=== PATIENT | male | born 1975 | race Two or more races ===

== ENCOUNTER 2020-03-12 08:28 | Inpatient (IN) | payer SELFPAY ==
[2020-03-12] VITALS (17 sets, daily range): BP systolic 86–137; BP diastolic 74–104; PULSE 83–164; RESP 22–39; TEMP 35.4–37.2; O2SAT 74–98; BMI 20.9
--- NOTE | ~2020-03-12 | XR_ITS ---
EXAMINATION: XR chest 1V portable DATE: 03/13/2020 06:23 INDICATION: Right lower thorax post chest tube placement TECHNIQUE: frontal view of the chest was obtained. COMPARISON: Chest radiograph dated 03/12/2020 FINDINGS: No interval change in a right apically directed chest tube. Slight decrease in size of a small right pneumothorax with separation of the pleural margins decreasing from 2.0 to 1.4 cm. Bilateral diffuse interstitial and patchy airspace opacities. No pleural effusion or left-sided pneumothorax. The cardi omediastinal silhouette is normal. IMPRESSION: 1. Decreased now small right pneumothorax post chest tube insertion. 2. Persistent bilateral mild interstitial and airspace opacities which could represent mild pulmonary edema, atelectasis or pneumonia. Reviewed, dictated and finalized at location A. IMPRESSION: 1. Decreased now small right pneumothorax post chest tube insertion. 2. Persistent bilateral mild interstitial and airspace opacities which could re present mild pulmonary edema, atelectasis or pneumonia.
--- NOTE | ~2020-03-12 | XR_ITS ---
EXAMINATION: XR chest 1V portable DATE: 03/17/2020 08:17 INDICATION: Right pneumothorax post chest tube placement TECHNIQUE: frontal view of the chest was obtained. COMPARISON: Chest radiograph dated 03/16/2020 FINDINGS: No change in an apically directed right chest tube. No significant change in a tiny right apical pneu mothorax. Blunting at the left costophrenic angle consistent with small left pleural effusion. Additi onal opacities in the left lower lung zone which could represent associated atelectasis or pneumonia. Pulmonary vascular congestion with increased perihilar interstitial pattern consistent with mild pul monary edema. No left-sided pneumothorax or right-sided pleural effusion. The cardiomediastinal silho uette is normal. Persistent subcutaneous gas along the lateral right chest wall centered at the site of chest tube insertion. IMPRESSION: 1. Unchanged right chest tube and tiny right apical pneumothorax. 2. Small left pleural effusion with associated atelectasis and/or pneumonia in the left lower lung zo ne. 3. Pulmonary vascular congestion and mild perihilar edema. Reviewed, dictated and finalized at location A. IMPRESSION: 1. Unchanged right chest tube and tiny right apical pneumothorax. 2. Small left pleural effusion with associated atelectasis and/or pneumonia in the left lower lung zone. 3. Pulmonary vascular congestion and mild perihilar edema.
--- NOTE | ~2020-03-12 | XR_ITS ---
EXAMINATION: XR chest 1V portable DATE: 03/14/2020 06:00 INDICATION: Pneumothorax TECHNIQUE: frontal view of the chest was obtained. COMPARISON: Chest radiograph dated 03/13/2020 FINDINGS: Unchanged right chest tube with tip at the apex. Continued decrease in size in a small right pneumoth orax with approximately 6 mm maximal separation between the pleural margins. No left-sided pneumothor ax. Interval increase in left-sided predominant and parahilar predominant interstitial and airspace o pacities. Possible trace bilateral pleural effusions. The cardiomediastinal silhouette is normal. IMPRESSION: 1. Increasing perihilar predominant opacities, left greater than right, which could represent asymmet theo pulmonary edema and/or pneumonia. 2. Unchanged right chest tube with continued decrease in a small right pneumothorax. Reviewed, dictated and finalized at location A. IMPRESSION: 1. Increasing perihilar predominant opacities, left greater than right, which c ould represent asymmetric pulmonary edema and/or pneumonia. 2. Unchanged right chest tube with continued decrease in a small right pneumoth orax.
--- NOTE | ~2020-03-12 | XR_ITS ---
EXAMINATION: XR chest 1V portable EXAM DATE: 03/12/2020 09:14 INDICATION: Pneumothorax. Hypoxia, dyspnea. TECHNIQUE: Portable AP frontal chest x-ray was obtained. Comparison is made to prior examination from 10/08/2005. FINDINGS: There is large right-sided pneumothorax, with some contralateral midline shift and right he midiaphragm flattening indicating this is under some tension. I discussed this finding with Lucia Kapoor MD at 03/12/2020 09:17 CDT. Collapsed right lung. No left-sided consolidation. Cardiomediastinal silhouette is normal. There are no osseous abnormalities identified. IMPRESSION: Large right-sided tension pneumothorax. Reviewed, dictated and finalized at location A.
--- NOTE | ~2020-03-12 | XR_ITS ---
EXAMINATION: XR chest-chest tube insert/pos DATE: 03/16/2020 14:03 INDICATION: Chest tube placement TECHNIQUE: frontal view of the chest was obtained. COMPARISON: Chest radiograph dated 03/16/2020 at 5:11 AM FINDINGS: Interval repositioning of a right chest tube with distal tip at the medial side of the right upper marcie ng zone. Decrease in size of a now very small right pneumothorax with 7 mm maximal separation of the pleural surfaces at the apex. Increased subcutaneous gas along the lateral right chest wall at the si te of chest and insertion. Again seen are mild airspace opacities in the left lower lung zone. No ple ural effusion or left-sided pneumothorax. The cardiomediastinal silhouette is normal conifer slight l eftward rotation of the patient. IMPRESSION: 1. Decrease in size of a now very small right apical pneumothorax post right chest tube repositioning . 2. Opacities in the left lower lung zone which could represent atelectasis and/or pneumonia. Reviewed, dictated and finalized at location A. IMPRESSION: 1. Decrease in size of a now very small right apical pneumothorax post right ch est tube repositioning. 2. Opacities in the left lower lung zone which could represent atelectasis and/ or pneumonia.
--- NOTE | ~2020-03-12 | XR_ITS ---
EXAMINATION: XR chest 2V DATE: 03/19/2020 09:04 INDICATION: Right pneumothorax TECHNIQUE: frontal view of the chest was obtained. COMPARISON: Chest radiograph dated 03/18/2020 FINDINGS: Unchanged position of an apically directed right chest tube. Interval increase in size of a still sma ll right pneumothorax with separation of the pleural margins at the right upper lung measuring up to 1.6 cm and with the pneumothorax now extending caudally to the lung base. Persistent opacities in the left lower lung zone including small left pleural effusion. No left-sided pneumothorax or definitive right pleural effusion. The cardiomediastinal silhouette is normal with no evident midline shift. Pe rsistent soft tissue gas at the lateral right chest wall centered at the site of chest tube insertion . IMPRESSION: 1. Increase in size of a small right pneumothorax with unchanged right chest tube. 2. Small left pleural effusion with atelectasis and/or pneumonia in the left lower lung zone. Reviewed, dictated and finalized at location A. IMPRESSION: 1. Increase in size of a small right pneumothorax with unchanged right chest tu be. 2. Small left pleural effusion with atelectasis and/or pneumonia in the left lo wer lung zone.
--- NOTE | ~2020-03-12 | US_ITS ---
EXAMINATION: US abdomen complete EXAM DATE: 03/14/2020 15:47 INDICATION: Spleen size. TECHNIQUE: Multiple grayscale and Doppler images of the complete abdomen were obtained (by a technolo gist who performed the scan) and subsequently reviewed. There is no prior study for comparison. FINDINGS: The abdominal aorta is normal in caliber. Visualized portion IVC is patent. The pancreatic head a nd body are normal in appearance. The pancreatic tail is not visualized. The liver has normal echogenicity and contour. There are no focal liver lesions identified. There is no evidence of intrahepatic biliary duct dilation. Portal venous flow was seen in the hepatopedal , normal direction and has normal Doppler waveform. Common bile duct measures 3 mm, which is normal. The gallbladder wall is normal in thickness, with ex pected amount of distention. No sonographic evidence of pericholecystic fluid. There is 1.4 cm gall stone. Technologist performing exam reports patient did not demonstrate sonographic Yen's sign. Please note that this sign is less reliable in patients who have received pain medication. Right kidney: There is normal contour and echogenicity. It measures 10.7 x 7.0 x 5.1 centimeters. There are no focal renal lesions identified. There is no hydronephrosis. Left kidney: There is normal contour and echogenicity. It measures 11.0 x 5.7 x 7.0 centimeters. T here are no focal renal lesions identified. There is no hydronephrosis. The spleen measures 9.4 centimeters and is morphologically normal. IMPRESSION: 1. Normal spleen size. 2. Cholelithiasis. Reviewed, dictated and finalized at location B.
--- NOTE | ~2020-03-12 | XR_ITS ---
EXAMINATION: XR chest 1V portable DATE: 03/16/2020 05:48 INDICATION: Pneumothorax TECHNIQUE: frontal view of the chest was obtained. COMPARISON: Chest radiograph dated 03/15/2020 FINDINGS: No interval change in apically directed right chest tube or of a small right pneumothorax with approx imately 1.7 cm separation of the pleural margins. Mild increased interstitial pattern in the bilatera l lower lung zones. Increasing more patchy airspace opacities in the left lower lung zone. No pleural effusion or left-sided pneumothorax. The cardiomediastinal silhouette is normal. Visualized bones an d soft tissues are unremarkable. IMPRESSION: 1. Unchanged small right pneumothorax with right chest tube. 2. Mild pulmonary edema in the lower lung zones with more focal opacities in the left lower lung zone which could represent superimposed atelectasis or pneumonia. Reviewed, dictated and finalized at location A. IMPRESSION: 1. Unchanged small right pneumothorax with right chest tube. 2. Mild pulmonary edema in the lower lung zones with more focal opacities in th e left lower lung zone which could represent superimposed atelectasis or pneumo magalie.
--- NOTE | ~2020-03-12 | XR_ITS ---
EXAMINATION: XR chest 1V portable DATE: 03/18/2020 05:57 INDICATION: Right pneumothorax post chest tube placement TECHNIQUE: frontal view of the chest was obtained. COMPARISON: Chest radiograph dated 03/17/2020 FINDINGS: Apically directed right chest tube. No significant interval change in a small right apical pneumothor ax. Opacities in the left lower lung zone consistent with small left pleural effusion and associated atelectasis and/or pneumonia. No left-sided pneumothorax or right-sided pleural effusion. The cardiom ediastinal silhouette is normal. Visualized bones and soft tissues are unremarkable. Persistent subcu taneous gas at the lateral right chest wall centered at the site of chest tube insertion. IMPRESSION: 1. Unchanged small right pneumothorax with right chest tube. 2. Small left pleural effusion with increasing atelectasis and/or pneumonia in the left lower lung zo ne. Reviewed, dictated and finalized at location A. IMPRESSION: 1. Unchanged small right pneumothorax with right chest tube. 2. Small left pleural effusion with increasing atelectasis and/or pneumonia in the left lower lung zone.
--- NOTE | ~2020-03-12 | XR_ITS ---
EXAMINATION: XR chest 1V portable DATE: 03/15/2020 06:33 INDICATION: Pneumothorax TECHNIQUE: frontal view of the chest was obtained. COMPARISON: Chest radiograph dated 03/14/2020 FINDINGS: Unchanged right chest tube with tip at the apex. Increase in size of a still small right pneumothorax with 1.7 cm maximal separation between the pleural margins at the apex. No left-sided pneumothorax. Pulmonary vascular congestion with mild interval improvement in the indistinct perihilar predominant bilateral diffuse increased interstitial pattern consistent with improving pulmonary edema. No pleura l effusion. Cardiomediastinal silhouette is normal. IMPRESSION: 1. Slight increase in size of a still small right pneumothorax with unchanged right chest tube. 2. Pulmonary vascular congestion with slight improvement in mild perihilar edema. Reviewed, dictated and finalized at location A. IMPRESSION: 1. Slight increase in size of a still small right pneumothorax with unchanged r ight chest tube. 2. Pulmonary vascular congestion with slight improvement in mild perihilar twyla debby
--- NOTE | ~2020-03-12 | XR_ITS ---
EXAMINATION: XR chest-chest tube insert/pos EXAM DATE: 03/12/2020 09:54 INDICATION: Chest tube insertion. TECHNIQUE: Portable AP frontal chest x-ray was obtained. Comparison is made to prior examination from earlier same date. FINDINGS: Interval insertion of right-sided chest tube with significant reduction in the previously s een large right-sided pneumothorax. It is now small to moderate in size. The mediastinum has returned to expected position. There are no osseous abnormalities identified. Some reexpansion atelectasis of the right lung. No confluent consolidation or pleural effusion. IMPRESSION: Small to moderate right pneumothorax, improved following chest tube insertion. Reviewed, dictated and finalized at location A. IMPRESSION: Small to moderate right pneumothorax, improved following chest tub e insertion.
--- NOTE | 2020-03-12 08:31 | ECG_ITS ---
Measurements Intervals [place] Rate: 160 P: [place]: 0 QRS: 103 QRSD: 90 T: 92 QT: 259 QTc: 422 Interpretive Statements SINUS TACHYCARDIA LIMB LEAD REVERSAL ANTEROSEPTAL INFARCT, AGE INDETERMINATE ABNORMAL ECG Electronically Signed On 03-12-2020 9:25:21 CDT by Myles Cody D.O.
--- NOTE | 2020-03-12 08:33 | ED.GENADULT ---
HPI - General Adult General Chief complaint: Shortness of Breath/Dyspnea Stated complaint: SOB Time Seen by Provider: 03/12/20 08:33 Source: patient Mode of arrival: ambulatory Limitations: no limitations History of Present Illness HPI narrative: Patient is a 44-year-old male with a history of plaque psoriasis taking Otezla who presents to the emergency department for shortness of breath. Patient reports 5-day history of worsening shortness of breath, finally came to the emergency department because he was having such difficulty breathing. Patient reports he is a daily smoker, but denies any history of COPD. He denies any drug use or alcohol use. Denies any history of HIV or other medical conditions. Patient states he is chronically thin, no recent weight loss. He denies fever, chills, rhinorrhea. He reports mild right-sided chest pain which has seems to come and go over the past 5 days, currently he rates it as more moderate in nature. He denies back pain, shoulder pain. No diaphoresis. He denies leg swelling or leg pain. No recent car or air travel. Patient states he is not had any recent sick contacts, mostly isolating at home. Related Data Home Medications Medication Instructions Recorded Confirmed No Home Medications 08/11/19 08/11/19 Allergies Allergy/AdvReac Type Severity Reaction Status Date / Time No Known Allergies Allergy Verified 03/12/20 08:44 Review of Systems Review of Systems: Narrative: CONSTITUTIONAL: Denies fever, chills, or sweats. EYES: Denies visual changes, redness, or discharge. ENT: Denies rhinorrhea, congestion, sore throat, or otalgia. CARDIOVASCULAR: Reports right-sided chest pain and palpitations, denies edema RESPIRATORY: Reports dry cough and shortness of breath GASTROINTESTINAL: Denies abdominal pain, nausea, vomiting, or diarrhea. GENITOURINARY: Denies dysuria or hematuria. SKIN: Denies rash or itching. MUSCULOSKELETAL: Denies back pain, joint pain, or myalgia. NEUROLOGIC: Denies headache, numbness, or weakness. [facility] Past Medical History Medical History Plaque psoriasis Social History Social History Smoking packs per day: 0.25 Smoking cigarettes per day: 5.0 Smoking status: Current every day smoker Tobacco type: cigarettes Second hand tobacco smoke exposure: Yes Gender identity (if verbalized by the patient): Male Exam Narrative: Exam Narrative: GENERAL: Awake, alert, conversant, chronically ill-appearing, thin HEAD: Normocephalic, atraumatic. Plaque psoriasis overlying scalp. EYES: PERRLA and EOMI. ENT: Nares clear, no rhinorrhea or epistaxis. Mucous membranes dry. NECK: Supple. CHEST: Tachypneic, severe hypoxemic, 74% on room air, diminished breath sounds on the right, coarse breath sounds on the left, no inspiratory or expiratory wheezing HEART: Tachycardic rate, sinus rhythm ABDOMEN:Non distended, non tender EXTREMITIES: Normal range of motion. No edema. SKIN: Warm, dry, no rash. NEURO:No focal deficits. Alert and oriented x3 Course Vital Signs Vital signs: Vital Signs Temperature 36.6 C 03/12/20 08:32 Pulse Rate 164 H 03/12/20 08:32 Respiratory Rate 26 H 03/12/20 08:32 Blood Pressure 137/101 H 03/12/20 08:32 Pulse Oximetry 74 L 03/12/20 08:32 Temperature 36.6 C 03/12/20 08:32 Pulse Rate 139 H 03/12/20 10:22 Respiratory Rate 27 H 03/12/20 10:22 Blood Pressure 104/89 03/12/20 10:22 Pulse Oximetry 94 03/12/20 10:23 Procedures Chest Tube Chest Tube 1: Chest Tube Date: 03/12/20 Chest Tube Time: 09:20 Chest Tube Location: right, mid axillary line and fourth interspace Tube Type: quik thal Size of Tube (cm): 16 Chest Tube Prep: Yes betadine prep and sterile drapes applied Anesthetic: lidocaine 1% Amount of anesthesia used (mL): 8 Incision Made With: #
[2020-03-12] MEDS: ALBUTEROL SULFATE (*SP) AEROSOL 1 PUFF 2 PUFF INHALATION (09:00)
[2020-03-12] MEDS: SODIUM CHLORIDE 0.9% IV 1,000 ML 999 ML IV CONT ×2 (09:00→11:04)
[2020-03-12 09:08] LABS: Basophils Percent Auto 0.7 % (0.2-1.2); Hematocrit 45.3 % (42.0-52.0); Hemoglobin 15.4 g/dL (14.0-18.0); Immature Granulocyte Absolute 0.05 K/mm3 (0.00-0.031); Immature Granulocyte Percent A 3.4 % (0-0.5); Lymphocytes Absolute Auto 0.37 K/mm3 (0.9-3.2); Lymphocytes Percent Auto 25.5 % (18.3-44.2); Mean Corpuscular Hemoglobin 30.5 pg (26-34); Mean Corpuscular Volume 89.7 fl (80-100); Mean Platelet Volume 10.4 fl (7.4-10.4); Monocytes Absolute Auto 0.4 K/mm3 (0.1-0.6); Monocytes Percent Auto 26.2 % (2.6-8.5); Neutrophils Absolute Auto 0.6 K/mm3 (1.3-6.7); Neutrophils Percent Auto 44.2 % (45.5-73.1); Platelet Count Result 288 k/mm3 (150-375); Red Blood Count 5.05 M/mm3 (4.6-6.20); Red Cell Distribution Width 13.5 % (11.5-14.5)
[2020-03-12 09:09] LABS: White Blood Count 1.5 K/mm3 (4.5-10.0)
[2020-03-12 09:13] LABS: Base Excess ABG -4.5 mEq/l (+/-2.0); Carboxyhemoglobin 0.5 % THb (0-2.0); Fractional Inspired Oxygen 40 %; HCO3 ABG 17.6 mEq/l (22.0-26.0); Methemoglobin ABG 0.3 %THb (0-1.5); Oxygen Content ABG 16.8 %vol (16.0-22.0); Oxygen Saturation ABG 87.9 % (95.0-100.0); Oxyhemoglobin 85.7 % THb (90.0-100.0); PCO2 ABG 25.6 mmHg (35.0-45.0); PO2 FiO2 Ratio Arterial Blood 1.25 %; Reduced Hemoglobin 13.5 %THb (0-5.0); pH ABG 7.456 (7.350-7.450)
[2020-03-12 09:14] LABS: PO2 ABG 49.8 mmHg (80.0-100.0)
[2020-03-12 09:21] LABS: Lactic Acid Reflex 3.9 mmol/L (0.7-2.1)
[2020-03-12 09:21] LABS: INR 1.2; Prothrombin Time 14.5 Seconds (11.1-14.7)
[2020-03-12 09:30] LABS: NT Pro B Type Natriuretic Pept 1510 PG/ML (5-100)
--- NOTE | 2020-03-12 09:32 | PC.NURSE ---
MD at bedside to perform chest tube procedure, time out performed, consent signed
[2020-03-12 09:35] LABS: Alanine Aminotransferase 26 U/L (4-50); Albumin Level 4.3 g/dL (3.5-5.1); Alkaline Phosphatase 135 U/L (38-126); Aspartate Amino Transferase 52 U/L (17-59); Bilirubin,Total 0.7 mg/dL (0.2-1.3); Blood Urea Nitrogen 25 mg/dL (9-20); CRP 17.9 mg/dL (<1.0); Calcium 9.9 mg/dL (8.4-10.2); Carbon Dioxide 23 mmol/L (22-30); Chloride 101 mmol/L (98-107); Estimated CRCL calculation 85 ml/min; Estimated Glomerular Filt Rate > 60; Glucose 173 mg/dL (75-110); Lactate Dehydrogenase 1039 U/L (313-618); Potassium 4.2 mmol/L (3.4-5.0); Sodium 136 mmol/L (137-145)
[2020-03-12 09:50] LABS: Add Urine Microscopic? YES; Appearance Urine Clear (Clear); Bacteria Urine Trace /hpf; Bilirubin Urine Negative (Negative); Blood Urine 1+ (Negative); Color Urine Amber (Yellow); Glucose Urine UA Negative (Negative); Ketones Urine Trace mg/dL (Negative); Leukocyte Esterase Ur Negative LEU/UL (Negative); Mucus Urine Few /lpf; Nitrate Urine Negative (Negative); Protein Urine 3+ mg/dL (Negative); Specific Grav Ur 1.032 (1.001-1.035); Squamous Epithelial Cell Urine Occasional /hpf (Few); Urobilinogen Urine Negative mg/dL (<2.0); WBC Urine 0-3 /hpf
[2020-03-12] MEDS: MORPHINE SULFATE 4 MG/ML INJ IV PUSH ×5 (10:16→23:30)
--- NOTE | 2020-03-12 10:49 | ECG_ITS ---
Measurements Intervals [place] Rate: 142 P: 77 [place]: 134 QRS: 97 QRSD: 82 T: 56 QT: 287 QTc: 441 Interpretive Statements SINUS TACHYCARDIA BORDERLINE RIGHT AXIS DEVIATION CANNOT RULE OUT SEPTAL INFARCT, AGE INDETERMINATE BASELINE ARTIFACT- I, III ABNORMAL ECG Electronically Signed On 03-12-2020 13:26:16 CDT by Myles Cody D.O.
[2020-03-12 11:06] LABS: HIV 1/2 Ab P24 Ag 184
[2020-03-12 11:22] LABS: Ferritin > 2000.00 ng/mL (17.9-464)
[2020-03-12 12:05] LABS: Reflex Lactic Acid Yes or No Add Lactic
[2020-03-12 12:19] LABS: HIV 1/2 Ab P24 Ag Result Reactive (Negative)
[2020-03-12 12:52] LABS: Lactic Acid 2.3 mmol/L (0.7-2.1)
[2020-03-12] MEDS: SODIUM CHLORIDE 0.9% IV 1,000 ML 125 ML IV CONT (13:22)
--- NOTE | 2020-03-12 13:38 | PM.CNGS ---
Assessment and Plan Assessment and plan (1) Spontaneous tension pneumothorax: Code(s): J93.0 - Spontaneous tension pneumothorax Status: Acute Assessment and Plan: Chest tube placed with interval improvement, continue to follow closely with serial imaging and exams (2) Sepsis: Qualifiers: Sepsis acute organ dysfunction status: unspecified Sepsis type: sepsis due to unspecified organism Qualified Code(s): A41.9 - Sepsis, unspecified organism Code(s): A41.9 - Sepsis, unspecified organism Status: Acute Assessment and Plan: unknown origin, workup per hospitalist team (3) HIV (human immunodeficiency virus infection): Code(s): B20 - Human immunodeficiency virus [HIV] disease Status: Acute Assessment and Plan: repeat PCR History of Present Illness Consult details Consult date: 03/12/20 Reason for consult: other ( Tension pneumothorax) Requesting physician: Lucia Kapoor MD Narrative: Patient is a 44-year-old male that presented to the emergency department complaining of right-sided chest pain and shortness of breath. Patient reports that the pain and shortness of breath has been progressively worsening over the last 5 days. Patient denies any other associated symptomatology. Patient denies any previous episodes. Review of Systems Constitutional: Constitutional: Denies chills, Denies fatigue, Denies lethargy, Denies night sweats and Denies weakness Eyes: Eyes: Reports no additional eye complaints and Denies loss of vision ENT: Reports Normal hearing present, Denies dysphagia, Denies headache(s), Denies hearing loss and Denies sore throat Cardiovascular: Cardiovascular: Denies chest pain, Denies syncope, Denies irregular heart rhythm, Denies leg edema and Denies dyspnea Respiratory: Respiratory: Reports cough, Reports dyspnea, Reports dyspnea on exertion and Reports wheezing Gastrointestinal: Gastrointestinal: Denies abdominal pain, Denies bloating, Denies change in bowel habits, Denies change in stool character, Denies constipation, Denies dysphagia, Denies heartburn, Denies diarrhea, Denies nausea and Denies vomiting Genitourinary: Genitourinary: Denies dysuria, Denies urinary frequency and Denies urinary urgency Musculoskeletal: Musculoskeletal: Denies myalgias, Denies arthralgias and Denies muscle cramps Integumentary/Breasts: Skin/Breast: Denies non-healing lesions and Denies rash Neurologic: Denies syncope, Denies headache(s) and Denies loss of vision Endocrine: Endocrine: Denies change in body appearance and Denies fatigue Hematologic/Lymphatic: Hematologic/Lymphatic: Denies easy bleeding, Denies easy bruising and Denies lymphadenopathy PMFSH Past Medical History Medical History Plaque psoriasis Social History Social History Smoking packs per day: 0.25 Smoking cigarettes per day: 5.0 Years smoked: 35 Smoking pack-years: 8.75 Smoking status: Former smoker Tobacco type: cigarettes Second hand tobacco smoke exposure: Yes Alcohol intake: never Substance use: never Gender identity (if verbalized by the patient): Male Spiritual care concerns: No Meds Home Medications and Allergies Home Medications Medication Instructions Recorded Confirmed Type apremilast [Otezla] 25 mg PO BID 03/12/20 03/12/20 History Allergies Allergy/AdvReac Type Severity Reaction Status Date / Time No Known Allergies Allergy Verified 03/12/20 08:44 Vital Signs Vital Signs - 24 hr 03/12/20 08:32 03/12/20 08:42 03/12/20 09:00 Temperature 36.6 C Pulse Rate 164 H 159 H Respiratory Rate 26 H 26 H Blood Pressure 137/101 H Pulse Oximetry 74 L 94 03/12/20 09:28 03/12/20 10:22 03/12/20 10:23 Temperature Pulse Rate 156 H 139 H Respiratory Rate 31 H 27 H Blood Pressure 132/95 H 104/89 Pulse Oximetry 93
[2020-03-12 14:56] LABS: Troponin I 0.044 ng/mL (0.000-0.034)
--- NOTE | 2020-03-12 15:34 | PM.IMHP ---
H&P: HPI History of Present Illness Chief complaint: Shortness of breath. Narrative: Mary Swann II is a 44-year-old male with plaque psoriasis on Otezla who presented to the emergency department earlier this morning via private vehicle from home for evaluation of shortness of breath. He began feeling short of breath about 5 days ago and it has gotten progressively worse since that time. Within the last several days he has had mild right-sided pleuritic chest pain, but nothing significant. He also mentions that his appetite has not been great and reports 2 loose stools today, however goes on to say that he has lost 70 pounds in the last 2 years that he has been on Otezla due to decreased appetite and occasional diarrhea. This morning he was extremely short of breath, to the point that he was feeling lightheaded/dizzy uneven a bit confused, and his mom brought him in for evaluation. He was found to have a spontaneous tension pneumothorax, and is status post chest tube insertion in the emergency department. His breathing is much better at this time however he is still has some pleuritic pain, more so at the side of the chest tube insertion. He has no history of pneumothorax. Of note, labs drawn today demonstrated moderate neutropenia and looking through his previous labs, he has had a mild neutropenia dating back to 2005. This prompted HIV screening, which did come back positive. He has not been sexually active for 5 years, and before that he had been in monogamous relationships, however he has never been tested for HIV. He has had sex with men in the past. 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 He has no history of IV drug use or known exposure to those positive for HIV. Additionally, labs showed elevated inflammatory markers including CRP, LDH, and ferritin. Given his shortness of breath, elevated inflammatory markers, and elevated LFTs he was swabbed for COVID. He denies fever, chills, and sweats. He has not had sinus congestion, rhinorrhea, otalgia, or odynophagia. 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 Review of Systems Review of Systems: Narrative: 12 systems were reviewed with pertinent positives and negatives as per HPI. No headache or neck ache. He denies rash and joint swelling/pain. Since starting Otezla he has had significant improvement in his plaque psoriasis. He lost 70 pounds since starting that drug, however. He denies blood in mucus in the stool. No dysuria, urgency or frequency. No penile discharge. Except as documented, all other systems were reviewed and are negative. [facility] Past Medical History Medical History (Updated 03/12/20 @ 18:42 by Cadence Quesada PA-C) Plaque psoriasis Treated with Otezla. Surgical History Surgical History (Updated 03/12/20 @ 18:32 by Cadence Quesada PA-C) No history of previous surgery Family History Family History (Updated 03/12/20 @ 18:32 by Cadence Quesada PA-C) Other Diabetes mellitus Hypertension Social History Social History (Updated 03/12/20 @ 18:33 by Cadence Quesada PA-C) Social History: He designates his mother is a surrogate decision maker and he wishes to be a full code. Smoking packs per day: 0.25 Smoking cigarettes per day: 5.0 Years smoked: 35 Smoking pack-years: 8.75 Smoking status: Former smoker Tobacco type: cigarettes Second hand tobacco smoke exposure: Yes Alcohol intake: never Substance use: never Additional living arrangements comments: Patient lives in [place]. His mother lives at home with him. Additional occupation/education comments: He is a security assurance analyst at a local [employer] facility. Gender identity (if verbalized by the patient): Male Spiritual care concerns: No Meds
[2020-03-12 15:36] LABS: Device NASAL CANNULA; Modified Allen's Test Pass; Site Drawn RIGHT RADIAL
--- NOTE | 2020-03-12 16:06 | ADMIMU ---
This patient, Mary Swann II, was admitted to IMU status, and placed in Intensive Care Unit-4 at 1300. Patient/family oriented to hospital policies and general routines including ID bracelet, bed and alarms, visiting hours, pain management, procedures, bathroom and other care routines, personal items, smoking policy, room service/diet, and visiting hours. Valuables list has been completed. Information on how to activate the Rapid Response Team has been discussed. Patient/Family are encouraged to report perceived risks to care and to ask questions if they do not understand what they are told or what they should do.
[2020-03-12] MEDS: SODIUM CHLORIDE 0.9% IV 1,000 ML 75 ML IV CONT (23:30)
[2020-03-13] VITALS (13 sets, daily range): BP systolic 93–110; BP diastolic 64–84; PULSE 58–92; RESP 17–26; TEMP 36.1–36.4; O2SAT 95–100; BMI 21.6
[2020-03-13 00:15] LABS: Amphetamine Screen Urine Negative (Negative); Barbiturate Screen Urine Negative (Negative); Benzodiazepines Screen Urine Positive (Negative); Cannabinoid Screen Urine Negative (Negative); Cocaine Screen Urine Negative (Negative); Methadone Screen Urine Negative (Negative); Opiate Screen Urine Positive (Negative); Phencyclidine Screen Urine Negative (Negative)
[2020-03-13] MEDS: ACETAMINOPHEN 325 MG TABLET 650 MG PO (02:27)
[2020-03-13 05:05] LABS: Basophils Percent Auto 0.9 % (0.2-1.2); Hematocrit 30.1 % (42.0-52.0); Hemoglobin 10.1 g/dL (14.0-18.0); Immature Granulocyte Percent A 9.4 % (0-0.5); Lymphocytes Absolute Auto 0.28 K/mm3 (0.9-3.2); Lymphocytes Percent Auto 26.4 % (18.3-44.2); Mean Corpuscular HGB Conc 33.6 g/dl (32-36); Mean Corpuscular Hemoglobin 30.1 pg (26-34); Mean Corpuscular Volume 89.9 fl (80-100); Mean Platelet Volume 10.7 fl (7.4-10.4); Monocytes Absolute Auto 0.3 K/mm3 (0.1-0.6); Monocytes Percent Auto 29.2 % (2.6-8.5); Neutrophils Absolute Auto 0.4 K/mm3 (1.3-6.7); Neutrophils Percent Auto 34.1 % (45.5-73.1); Platelet Count Result 176 k/mm3 (150-375); Red Blood Count 3.35 M/mm3 (4.6-6.20); Red Cell Distribution Width 13.4 % (11.5-14.5)
[2020-03-13 05:14] LABS: Hemoglobin A1C 5.5 % (<5.7)
[2020-03-13 05:17] LABS: INR 1.1; Prothrombin Time 13.5 Seconds (11.1-14.7)
[2020-03-13 05:18] LABS: Partial Thromboplastin Time 33.5 SECONDS (22.3-36.8)
[2020-03-13 05:19] LABS: Lactic Acid 1.5 mmol/L (0.7-2.1)
[2020-03-13 05:22] LABS: Alanine Aminotransferase 16 U/L (4-50); Albumin Level 3.2 g/dL (3.5-5.1); Alkaline Phosphatase 92 U/L (38-126); Aspartate Amino Transferase 26 U/L (17-59); Bilirubin,Total 0.5 mg/dL (0.2-1.3); Blood Urea Nitrogen 20 mg/dL (9-20); CRP 8.1 mg/dL (<1.0); Calcium 8.4 mg/dL (8.4-10.2); Carbon Dioxide 23 mmol/L (22-30); Chloride 105 mmol/L (98-107); Estimated CRCL calculation 108 ml/min; Estimated Glomerular Filt Rate > 60; Glucose 134 mg/dL (75-110); Lactate Dehydrogenase 792 U/L (313-618); Magnesium 2.2 mg/dL (1.6-2.3); Phosphorus 2.7 mg/dL (2.5-4.5); Potassium 4.7 mmol/L (3.4-5.0); Sodium 134 mmol/L (137-145)
[2020-03-13 06:03] LABS: White Blood Count 1.1 K/mm3 (4.5-10.0)
[2020-03-13 06:15] LABS: Thyroid Stimulating Hormone Reflex 0.559 uIU/mL (0.465-4.68)
[2020-03-13] MEDS: MORPHINE SULFATE 4 MG/ML INJ IV PUSH ×4 (09:27→20:35)
--- NOTE | 2020-03-13 15:57 | P.PNIM_ITS ---
Progress Note: A&P Assessment and Plan (1) Spontaneous tension pneumothorax: Code(s): J93.0 - Spontaneous tension pneumothorax Status: Acute Assessment and Plan: * Status post right-sided chest tube insertion on 03/12/2020. * Dr. Rich consulted for tube management. (2) Systemic inflammatory response syndrome: Code(s): R65.10 - Systemic inflammatory response syndrome (SIRS) of non-infectious origin without acute organ dysfunction Status: Acute Assessment and Plan: * SIRS criteria met on arrival with neutropenia, tachycardia and tachypnea. * On review of previous labs, he has been neutropenic dating back to 2005, though numbers have not been this low. * Tachycardia and tachypnea on presentation are most likely due to his spontaneous pneumothorax and hypoxia. * Lactic acid level is back to normal. * He gives no history to suggest underlying infection, however inflammatory markers are elevated including CRP, LDH, and ferritin. LFTs are also elevated, raising concern for possible underlying COVID-19. * He received a dose of cefepime and vancomycin emergency department, but at this time there is no obvious underlying infection so antibiotic had been stopped. * Blood cultures have been obtained and are pending. (3) Acute respiratory failure with hypoxia: Code(s): J96.01 - Acute respiratory failure with hypoxia Status: Acute Assessment and Plan: * Secondary to spontaneous tension pneumothorax. * SpO2 is now in the mid 90 status post chest tube placement. (4) HIV antibody positive: Code(s): Z21 - Asymptomatic human immunodeficiency virus [HIV] infection status Status: Acute Assessment and Plan: * Confirmation tests have been obtained and are pending. * Dr. Andrews was consulted by the ED physician and he recommends no antibiotics at this time. (5) Elevated troponin: Code(s): R79.89 - Other specified abnormal findings of blood chemistry Status: Acute Assessment and Plan: * I suspect this is secondary to tachycardia and hypoxia related to spontaneous tension pneumothorax. * Troponins are flat and are not indicative of acute coronary syndrome. (6) Dehydration: Code(s): E86.0 - Dehydration Status: Acute Assessment and Plan: * Due to poor oral intake over the last 4 or 5 days. * Resolved now (7) Neutropenia: Code(s): D70.9 - Neutropenia, unspecified Status: Acute Assessment and Plan: * Absolute neutrophil count today consistent with severe neutropenia. * On review of previous labs, he has had a mild neutropenia dating back to 2005. * Could be due to HIV (confirmation test pending), infection, drug related. * Will consult hematology. (8) Plaque psoriasis: Code(s): L40.0 - Psoriasis vulgaris Status: Acute Assessment and Plan: * Otezla currently on hold. Subjective Date/time seen: No new complains today, he feels better. 03/13/20 15:57 Review of Systems Review of Systems: All systems reviewed & are unremarkable except as noted in
--- NOTE | 2020-03-13 15:57 | PM.IMPN ---
Progress Note: A&P Assessment and Plan (1) Spontaneous tension pneumothorax: Code(s): J93.0 - Spontaneous tension pneumothorax Status: Acute Assessment and Plan: Status post right-sided chest tube insertion on 03/12/2020. Dr. Rich consulted for tube management. (2) Systemic inflammatory response syndrome: Code(s): R65.10 - Systemic inflammatory response syndrome (SIRS) of non-infectious origin without acute organ dysfunction Status: Acute Assessment and Plan: SIRS criteria met on arrival with neutropenia, tachycardia and tachypnea. On review of previous labs, he has been neutropenic dating back to 2005, though numbers have not been this low. Tachycardia and tachypnea on presentation are most likely due to his spontaneous pneumothorax and hypoxia. Lactic acid level is back to normal. He gives no history to suggest underlying infection, however inflammatory markers are elevated including CRP, LDH, and ferritin. LFTs are also elevated, raising concern for possible underlying COVID-19. He received a dose of cefepime and vancomycin emergency department, but at this time there is no obvious underlying infection so antibiotic had been stopped. Blood cultures have been obtained and are pending. (3) Acute respiratory failure with hypoxia: Code(s): J96.01 - Acute respiratory failure with hypoxia Status: Acute Assessment and Plan: Secondary to spontaneous tension pneumothorax. SpO2 is now in the mid 90 status post chest tube placement. (4) HIV antibody positive: Code(s): Z21 - Asymptomatic human immunodeficiency virus [HIV] infection status Status: Acute Assessment and Plan: Confirmation tests have been obtained and are pending. Dr. Andrews was consulted by the ED physician and he recommends no antibiotics at this time. (5) Elevated troponin: Code(s): R79.89 - Other specified abnormal findings of blood chemistry Status: Acute Assessment and Plan: I suspect this is secondary to tachycardia and hypoxia related to spontaneous tension pneumothorax. Troponins are flat and are not indicative of acute coronary syndrome. (6) Dehydration: Code(s): E86.0 - Dehydration Status: Acute Assessment and Plan: Due to poor oral intake over the last 4 or 5 days. Resolved now (7) Neutropenia: Code(s): D70.9 - Neutropenia, unspecified Status: Acute Assessment and Plan: Absolute neutrophil count today consistent with severe neutropenia. On review of previous labs, he has had a mild neutropenia dating back to 2005. Could be due to HIV (confirmation test pending), infection, drug related. Will consult hematology. (8) Plaque psoriasis: Code(s): L40.0 - Psoriasis vulgaris Status: Acute Assessment and Plan: Otezla currently on hold. Subjective Date/time seen: No new complains today, he feels better. 03/13/20 15:57 Review of Systems Review of Systems: All systems reviewed & are unremarkable except as noted in HPI and below Exam Narrative: Exam Narrative: General: Chronically ill-appearing male in bed in no acute distress. HEENT: PERRL, EOMI. Sclerae anicteric. Oral mucosa tacky. Lips dry and chapped. Neck: Supple. No lymphadenopathy. Chest: Respirations are nonlabored. Occasionally he seems to taken shallow breaths due to reported pleuritic pain at the side of the chest tube. Chest tube without leak. Dressing is clean, dry, and intact. Respiratory
[2020-03-13 18:54] LABS: SARS-CoV-2 RNA PCR Negative
[2020-03-13] MEDS: FLUCONAZOLE 100 MG TABLET PO (21:42)
[2020-03-14] VITALS (15 sets, daily range): BP systolic 98–118; BP diastolic 60–74; PULSE 67–106; RESP 16–22; TEMP 35.7–36.6; O2SAT 96–100
--- NOTE | 2020-03-14 | ECHO_ITS ---
Patient Info Name: Mary Swann Age: 44 years : 1975 Gender: Male Ht: 69 in Wt: 141 lbs BSA: 1.76 m2 HR: 74 bpm BP: 93 / 64 mmHg Technical Quality: Good Exam Date: 03/14/2020 8:52 AM Exam Location: [facility] Pulmonary Patient Status: Inpatient Admit Date: 03/12/2020 Staff Ordering Physician: Cadence Quesada PA-C [employer] Metal: Alonso Yen, CODY, RT Attending Provider: Jose Miguel Nascimento MD Referring Physician: Sangita TROY; Exam Type: CA echo doppler color flow Study Info Indications R06.02 - Shortness of breath Complete two-dimensional, color flow and Doppler transthoracic echocardiogram is performed. Summary 1. Mild LVH, LV size is at upper limits of normal; normal LV systolic. Grade 2 diastolic dysfunction. LVEF about 60%; global longitudinal strain-20%. Normal structure of the valves, trace AI, trace TR, RVSP 24 mmHg. Left Ventricle Left ventricular chamber dimension is normal. Left ventricular systolic function is normal, estimated at 60-65%. There is mildly increased left ventricular wall thickness. Left ventricular septal wall motion is normal. The left ventricular diastolic function is abnormal. Right Ventricle Right ventricular chamber dimension is normal. Right ventricular systolic function is normal. Left Atria Left atrial chamber dimension is normal. Right Atria Right atrial chamber dimension is normal. Aortic Valve The aortic valve is trileaflet. There is no aortic valve sclerosis. There is no aortic valve stenosis. There is trace aortic valve regurgitation. Pulmonic Valve The pulmonic valve is normal. There is no pulmonic regurgitation. Mitral Valve The mitral valve has normal leaflets. There is no mitral valve stenosis. There is no mitral valve regurgitation. Tricuspid Valve The tricuspid valve leaflets are normal. There is trace tricuspid valve regurgitation. Pericardium/Pleural The pericardium appears normal. There is no pericardial effusion. Inferior Vena Cava Normal inferior vena cava with >50% collapse upon inspiration consistent with normal right atrial pressure, 8 mmHg. Aorta The aortic root size at the sinus of Valsalva is normal. The prox ascending aorta size is normal. Left Ventricular Outflow Tract Name Value Normal LVOT 2D LVOT Diameter 2.2 cm LVOT Doppler LVOT Peak Gradient 4 mmHg LVOT Mean Gradient 2 mmHg LVOT VTI 17 cm LVOT VTI/AV VTI Ratio 0.7 LVOT Stroke Volume 65 ml LVOT CO 4.4 l/min LVOT CI 2.5 l/min/m2 Mitral Valve Name Value Normal MV Doppler MV Decel Amite 381 cm/s2 MV PHT 68 ms
[2020-03-14] MEDS: MORPHINE SULFATE 4 MG/ML INJ IV PUSH ×5 (00:31→21:48)
--- NOTE | 2020-03-14 00:59 | PC.NURSE ---
This patient, Mary Swann II, was received from [ ICU room 4] on 03/14/20 at 0059. Personal belongings list checked and signed. Patient/family oriented to unit policies and routines
[2020-03-14 05:22] LABS: Blood Urea Nitrogen 22 mg/dL (9-20); Calcium 8.5 mg/dL (8.4-10.2); Carbon Dioxide 28 mmol/L (22-30); Chloride 105 mmol/L (98-107); Estimated CRCL calculation 146 ml/min; Estimated Glomerular Filt Rate > 60; Glucose 86 mg/dL (75-110); Potassium 5.2 mmol/L (3.4-5.0); Sodium 135 mmol/L (137-145)
[2020-03-14 06:04] LABS: Basophils Percent Auto 1.2 % (0.2-1.2); Eosinophils Percent Auto 1.2 % (0-4.4); Hematocrit 30.6 % (42.0-52.0); Hemoglobin 10.2 g/dL (14.0-18.0); Immature Granulocyte Absolute 0.01 K/mm3 (0.00-0.031); Immature Granulocyte Percent A 1.2 % (0-0.5); Lymphocytes Absolute Auto 0.37 K/mm3 (0.9-3.2); Lymphocytes Percent Auto 43.5 % (18.3-44.2); Mean Corpuscular HGB Conc 33.3 g/dl (32-36); Mean Corpuscular Hemoglobin 30.4 pg (26-34); Mean Corpuscular Volume 91.1 fl (80-100); Mean Platelet Volume 10.8 fl (7.4-10.4); Monocytes Absolute Auto 0.2 K/mm3 (0.1-0.6); Monocytes Percent Auto 18.8 % (2.6-8.5); Neutrophils Absolute Auto 0.3 K/mm3 (1.3-6.7); Neutrophils Percent Auto 34.1 % (45.5-73.1); Platelet Count Result 218 k/mm3 (150-375); Red Blood Count 3.36 M/mm3 (4.6-6.20); Red Cell Distribution Width 13.5 % (11.5-14.5)
[2020-03-14 06:56] LABS: White Blood Count 0.9 K/mm3 (4.5-10.0)
--- NOTE | 2020-03-14 12:40 | P.PNIM_ITS ---
Progress Note: A&P Assessment and Plan (1) Spontaneous tension pneumothorax: Code(s): J93.0 - Spontaneous tension pneumothorax Status: Acute Assessment and Plan: * Status post right-sided chest tube insertion on 03/12/2020. * Dr. Rich consulted for tube management. * Cxr shows - Increasing perihilar predominant opacities, left greater than right, which could represent asymmetric pulmonary edema and/or pneumo magalie.Unchanged right chest tube with continued decrease in a small right pneumothorax. (2) Systemic inflammatory response syndrome: Code(s): R65.10 - Systemic inflammatory response syndrome (SIRS) of non-infectious origin without acute organ dysfunction Status: Acute Assessment and Plan: * SIRS criteria met on arrival with neutropenia, tachycardia and tachypnea. * Vitals are better since chest tube placement. Blood cultures are negative to date (3) Acute respiratory failure with hypoxia: Code(s): J96.01 - Acute respiratory failure with hypoxia Status: Acute Assessment and Plan: * Secondary to spontaneous tension pneumothorax. * Sp chest tube placement. (4) HIV antibody positive: Code(s): Z21 - Asymptomatic human immunodeficiency virus [HIV] infection status Status: Acute Assessment and Plan: * Confirmation tests have been obtained and are pending. * Dr. Andrews was consulted (5) Elevated troponin: Code(s): R79.89 - Other specified abnormal findings of blood chemistry Status: Acute Assessment and Plan: * I suspect this is secondary to tachycardia and hypoxia related to spontaneous tension pneumothorax. (6) Dehydration: Code(s): E86.0 - Dehydration Status: Acute Assessment and Plan: * Due to poor oral intake over the last 4 or 5 days. * Resolved now (7) Neutropenia: Code(s): D70.9 - Neutropenia, unspecified Status: Acute Assessment and Plan: * Absolute neutrophil count today consistent with severe neutropenia. * Awaiting HIV confirmatory test * Will consult hematology. (8) Plaque psoriasis: Code(s): L40.0 - Psoriasis vulgaris Status: Acute Assessment and Plan: * Otezla currently on hold. Subjective Date/time seen: 03/14/20 12:40 Interval history: Mary Swann II is a 44-year-old male with plaque psoriasis on Otezla who presented to the emergency department earlier this morning via private vehicle from home for evaluation of shortness of breath. Pt found to have a spontaneous pneumothorax. Pt had chest tube placed by surgery. Pt is breathing better. Sats are 100% on 3 liters. Pt has history of HIV, neutropenia and SIRS. Review of Systems Review of Systems: All systems reviewed & are unremarkable except as noted in HPI and below Respiratory: Respiratory: Denies chest congestion, Reports cough and Reports dyspnea Exam Narrative: Exam Narrative: General: Chronically ill-appearing male HEENT: PERRLA Neck: Supple. No lymphadenopathy. Ches
--- NOTE | 2020-03-14 12:40 | PM.IMPN ---
Progress Note: A&P Assessment and Plan (1) Spontaneous tension pneumothorax: Code(s): J93.0 - Spontaneous tension pneumothorax Status: Acute Assessment and Plan: Status post right-sided chest tube insertion on 03/12/2020. Dr. Rich consulted for tube management. Cxr shows - Increasing perihilar predominant opacities, left greater than right, which could represent asymmetric pulmonary edema and/or pneumonia.Unchanged right chest tube with continued decrease in a small right pneumothorax. (2) Systemic inflammatory response syndrome: Code(s): R65.10 - Systemic inflammatory response syndrome (SIRS) of non-infectious origin without acute organ dysfunction Status: Acute Assessment and Plan: SIRS criteria met on arrival with neutropenia, tachycardia and tachypnea. Vitals are better since chest tube placement. Blood cultures are negative to date (3) Acute respiratory failure with hypoxia: Code(s): J96.01 - Acute respiratory failure with hypoxia Status: Acute Assessment and Plan: Secondary to spontaneous tension pneumothorax. Sp chest tube placement. (4) HIV antibody positive: Code(s): Z21 - Asymptomatic human immunodeficiency virus [HIV] infection status Status: Acute Assessment and Plan: Confirmation tests have been obtained and are pending. Dr. Andrews was consulted (5) Elevated troponin: Code(s): R79.89 - Other specified abnormal findings of blood chemistry Status: Acute Assessment and Plan: I suspect this is secondary to tachycardia and hypoxia related to spontaneous tension pneumothorax. (6) Dehydration: Code(s): E86.0 - Dehydration Status: Acute Assessment and Plan: Due to poor oral intake over the last 4 or 5 days. Resolved now (7) Neutropenia: Code(s): D70.9 - Neutropenia, unspecified Status: Acute Assessment and Plan: Absolute neutrophil count today consistent with severe neutropenia. Awaiting HIV confirmatory test Will consult hematology. (8) Plaque psoriasis: Code(s): L40.0 - Psoriasis vulgaris Status: Acute Assessment and Plan: Otezla currently on hold. Subjective Date/time seen: 03/14/20 12:40 Interval history: Mary Swann II is a 44-year-old male with plaque psoriasis on Otezla who presented to the emergency department earlier this morning via private vehicle from home for evaluation of shortness of breath. Pt found to have a spontaneous pneumothorax. Pt had chest tube placed by surgery. Pt is breathing better. Sats are 100% on 3 liters. Pt has history of HIV, neutropenia and SIRS. Review of Systems Review of Systems: All systems reviewed & are unremarkable except as noted in HPI and below Respiratory: Respiratory: Denies chest congestion, Reports cough and Reports dyspnea Exam Narrative: Exam Narrative: General: Chronically ill-appearing male HEENT: PERRLA Neck: Supple. No lymphadenopathy. Chest: Respirations are nonlabored. Chest tube in situ. Dressing is clean, dry, and intact. Respiratory: Crackles heard in the RLL Cardiovascular: Regular rate and rhythm with S1-S2. Gastrointestinal: Abdomen is soft Skin: Warm and dry. Some hyperpigmented areas on the extremities likely due to previous psoriatic plaques. Extremities: No cyanosis, clubbing, or edema. Neurological: Alert and oriented. No gross focal deficits to casual conversation. Psychiatric: Pleasant and cooperative. Objective D
[2020-03-14 13:27] LABS: Iron 50 ug/dL (49-181)
[2020-03-14 13:36] LABS: Percent Iron Saturation 26 % (20-50)
--- NOTE | 2020-03-14 14:44 | PM.PNGS ---
Progress Note: A&P Assessment and Plan (1) Spontaneous tension pneumothorax: Code(s): J93.0 - Spontaneous tension pneumothorax Status: Acute Assessment and Plan: Now stable on room air. Chest x-ray this morning showed again interval improvement of the, now tiny, right pneumothorax. Air leak on exam today even after changing the dressing and securing connections. Will continue to monitor the chest tube on water seal and repeat chest x-ray in the morning. Add IS. Negative SARS-CoV2. (2) HIV (human immunodeficiency virus infection): Code(s): B20 - Human immunodeficiency virus [HIV] disease Status: Acute Assessment and Plan: Hematology and ID were consulted. Confirmation tests ordered. (3) Neutropenia: Code(s): D70.9 - Neutropenia, unspecified Status: Acute Additional Plan Discussed the patient's case and formulated plan of care with Dr. Rich. Subjective Subjective Date/Time Seen: 03/14/20 12:44 Patient reports: no new complaints and feels better Interval history: Patient seen and examined. No shortness of breath. Reports having a productive cough. Some discomfort near the chest tube with movement. No other complaints at this time. Review of Systems Review of Systems: All systems reviewed & are unremarkable except as noted in HPI and below Exam Const: General: comfortable and no acute distress Orientation/consciousness: patient oriented x3 Resp: Effort & Inspection: normal respiratory effort and able to speak in complete sentences Auscultation: diminished lung sounds Other: Right-sided chest tube with air leak noted and with further assessment, it was noted that the dressing was not intact and partially removed, insertion site exposed. Removed old dressing and applied a new sterile occlusive dressing. Checked connections, which were all secured. Following this, the chest tube was checked again and small air leak still present Extrem: General: normal to inspection and no clubbing, cyanosis or edema Psych: Mental Status: mental status grossly normal Objective Data Vital Signs Vital Signs: Vital Signs - 24 hr 03/13/20 16:00 03/13/20 18:00 03/13/20 20:00 Temperature 36.4 C Pulse Rate 85 92 82 Respiratory Rate 19 22 H Blood Pressure 107/75 103/83 Pulse Oximetry 98 98 03/13/20 22:00 03/14/20 00:00 03/14/20 02:00 Temperature 36.6 C Pulse Rate 81 90 78 Respiratory Rate 22 H Blood Pressure 106/74 Pulse Oximetry 100 03/14/20 04:00 03/14/20 06:00 03/14/20 08:00 Temperature 36.6 C Pulse Rate 90 84 67 Respiratory Rate 18 Blood Pressure 118/74 Pulse Oximetry 99 03/14/20 08:29 03/14/20 10:00 03/14/20 12:27 Temperature 35.7 C L 35.8 C L Pulse Rate 86 74 94 Respiratory Rate 18 16 Blood Pressure 100/66 114/70 Pulse Oximetry 100 100 Intake/Output Intake/Output: Intake & Output 03/11/20 03/12/20 03/13/20 03/14/20 23:59 23:59 23:59 23:59 Intake Total 3300 2370 360 Output Total 956 Balance 3300 1414 360 Meds/Results Medications: Active Medications Generic Name Dose Route Start Last Admin Trade Name Freq PRN Reason Stop Dose Admin Acetaminophen 650 mg 03/12/20 10:28 03/13/20 02:27 Tylenol Tablet PO 650 mg Q4H PRN Administration Mild Pain (1-3) or Fever Fluconazole 100 mg 03/13/20 21:00 03/13/20 21:42 Diflucan Tablet PO 100 mg HS MARY JANE Administration Ceftriaxone Sodium/Dextrose 1 gm in 50 mls @ 100 mls/hr 03/13/20 14:00 03/13/20 19:44 Rocephin 1 Gm/D5w 50 Ml IVPB Infused Q24H MARY JANE Infusion Morphine Sulfate 4 mg 03/12/20 10:28 03/14/20 13:07 Morphine Sulfate Inj IV PUSH 4 mg Q2H PRN Administration Pain Rated 7-10 Ondansetron HCl 4 mg 03/12/20 10:28 Zofran Inj IV PUSH Q4H PRN Nausea Radiology Results: ITS Impressions Chest X-Ray 03/14/20 07:06 IMPRESSION: 1. Increasing perihilar predominant opacities, left greater than right, which
--- NOTE | 2020-03-14 20:16 | CONS_ITS ---
DATE OF CONSULTATION: 03/14/2020 REASON FOR CONSULTATION: Neutropenia. HISTORY OF PRESENTING ILLNESS: This is a 44-year-old pleasant male with history of plaque psoriasis. He was on Otezla for longer than 6 months duration and has improvement in his psoriasis. He lost almost 40 pounds weight in last 6 months. Otezla has been discontinued recently. He came into the hospital with difficulty breathing with worsening of dyspnea on exertion and shortness of breath. According to the patient, he was getting short of breath for last 5 days duration and progressed lately got worsened. He also had right-sided pleuritic chest pain. He denies any fevers and chills. He denies any rash and arthritis. He denies any melena, hematochezia, and hemoptysis. The patient HIV screening testing came back positive. On admission, his white blood cell count was 1.5, which has gone down to 0.9. He was also anemic with hemoglobin of 10.2. Platelets were normal. REVIEW OF SYSTEMS: 12-point review of systems reviewed and as per HPI, otherwise negative. PAST MEDICAL HISTORY: Plaque psoriasis. PAST SURGICAL HISTORY: None. FAMILY HISTORY: No history of malignancy in the family. 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 He is a former smoker. He denies any alcohol intake. Denies any drug use. HOME MEDICATIONS: Reviewed. ALLERGIES: REVIEWED. PHYSICAL EXAMINATION: GENERAL: This patient is a well-developed, well-nourished, male, in no apparent distress. Alert and oriented. Vital signs per nursing note. HEENT: Normocephalic, atraumatic. Clear oropharynx. LUNGS: Clear to auscultation bilaterally. CARDIOVASCULAR: Regular rate and rhythm. No murmurs. ABDOMEN: Soft, nontender, nondistended. Bowel sounds are positive in all 4 quadrants. No hepatosplenomegaly. EXTREMITIES: No edema. NEUROLOGIC: Intact. LYMPHATIC: No lymphadenopathy. LABORATORY DATA: WBC 0.9, hemoglobin 10.2, MCV 91.1, platelet 218,000, neutrophils 34%, lymphocytes 43%, monocytes 18.8%, ANC 300, creatinine 0.5, iron 50, iron saturation 26%, ferritin 1050, LDH 792. C-reactive protein elevated 8.1, B12 614. SUSANNAH is pending. ASSESSMENT AND PLAN: 1. Neutropenia and normocytic anemia in a 44-year-old male. This is a 44-year-old male who is tested positive for HIV infection. He also has history of plaque psoriasis. He was on Otezla. This has been discontinued recently. The patient has lost 40 pounds weight in the last 6 months. He has no lymphadenopathy on my examination. I have ordered an abdominal ultrasound that showed no evidence of hepatosplenomegaly. Other labs including iron studies showed no evidence of iron deficiency and vitamin B12 also came back normal. SUSANNAH is pending. His neutropenia is likely secondary to HIV infection and his neutropenia, likely secondary to HIV infection. A peripheral smear has been ordered. I will start him on Neupogen 300 mcg subcu daily to keep ANC to give WBC count more than 5000. I do not see need for bone marrow aspiration and biopsy at this time. 2. Spontaneous tension pneumothorax. Status post right-sided chest tube placement. The patient is also on prophylactic antibiotics. We will follow along with you. I have provided this patient my office information for followup. JUAN MCDANEIL M.D. FORESTRY TREE PRUNER FORESTRY TREE PRUNER D I MT: [place]
[2020-03-14] MEDS: FILGRASTIM 300 MCG/ML VIAL SUB-Q (21:38)
[2020-03-14] MEDS: FLUCONAZOLE 100 MG TABLET PO (21:39)
[2020-03-15] VITALS (15 sets, daily range): BP systolic 107–127; BP diastolic 46–84; PULSE 59–123; RESP 12–20; TEMP 36.4–37.6; O2SAT 93–99
[2020-03-15 04:48] LABS: Eosinophils Percent Auto 2.5 % (0-4.4); Hemoglobin 10.1 g/dL (14.0-18.0); Immature Granulocyte Absolute 0.05 K/mm3 (0.00-0.031); Immature Granulocyte Percent A 6.3 % (0-0.5); Lymphocytes Absolute Auto 0.24 K/mm3 (0.9-3.2); Lymphocytes Percent Auto 30.4 % (18.3-44.2); Mean Corpuscular HGB Conc 33.7 g/dl (32-36); Mean Corpuscular Hemoglobin 30.3 pg (26-34); Mean Corpuscular Volume 90.1 fl (80-100); Mean Platelet Volume 10.1 fl (7.4-10.4); Monocytes Absolute Auto 0.2 K/mm3 (0.1-0.6); Monocytes Percent Auto 22.8 % (2.6-8.5); Neutrophils Absolute Auto 0.3 K/mm3 (1.3-6.7); Platelet Count Result 220 k/mm3 (150-375); Red Blood Count 3.33 M/mm3 (4.6-6.20); Red Cell Distribution Width 13.2 % (11.5-14.5)
[2020-03-15 05:13] LABS: Blood Urea Nitrogen 15 mg/dL (9-20); Calcium 8.1 mg/dL (8.4-10.2); Carbon Dioxide 27 mmol/L (22-30); Chloride 102 mmol/L (98-107); Estimated CRCL calculation 93 ml/min; Estimated Glomerular Filt Rate > 60; Glucose 91 mg/dL (75-110); Potassium 3.8 mmol/L (3.4-5.0); Sodium 133 mmol/L (137-145); White Blood Count 0.8 K/mm3 (4.5-10.0)
[2020-03-15] MEDS: FILGRASTIM 300 MCG/ML VIAL SUB-Q (08:13)
[2020-03-15] MEDS: MORPHINE SULFATE 4 MG/ML INJ IV PUSH ×3 (08:19→20:29)
--- NOTE | 2020-03-15 14:52 | PM.PNGS ---
Progress Note: A&P Assessment and Plan (1) Spontaneous tension pneumothorax: Code(s): J93.0 - Spontaneous tension pneumothorax Status: Acute Assessment and Plan: Chest x-ray this morning showed slight increase in size of the still small right pneumothorax. Chest tube in expected position. Still has an air leak on exam today. Will keep him on water seal again today and repeat chest x-ray tomorrow morning. Continue IS. Negative SARS-CoV2. (2) HIV (human immunodeficiency virus infection): Code(s): B20 - Human immunodeficiency virus [HIV] disease Status: Acute Assessment and Plan: Hematology and ID were consulted. Confirmation tests ordered. (3) Neutropenia: Code(s): D70.9 - Neutropenia, unspecified Status: Acute Assessment and Plan: Likely due to the HIV infection. Hematology following and started patient on Neupogen. Additional Plan Discussed the patient's case and formulated plan of care with Dr. Rich. Subjective Subjective Date/Time Seen: 03/15/20 14:52 Patient reports: no new complaints Interval history: Patient sitting up in the bed and reports feeling well today. No specific complaints at this time. Denies shortness of breath. Still with a productive cough, but no worse. Review of Systems Cardiovascular: Cardiovascular: Reports no additional cardiovascular complaints and Denies chest pain Respiratory: Respiratory: Reports as per HPI, Reports no additional respiratory complaints, Reports cough, Denies dyspnea and Denies dyspnea on exertion Exam Const: General: cooperative, comfortable and no acute distress Orientation/consciousness: patient oriented x3 Resp: Effort & Inspection: normal respiratory effort and able to speak in complete sentences Auscultation: diminished lung sounds on the right Other: Right-sided chest tube with dressing clean/dry/intact. Small air leak noted. Connections secure. Neuro: General: patient oriented x3, moves all extremities and no focal motor deficits Psych: Mental Status: mental status grossly normal Affect: normal affect Attitude: cooperative Insight: Good insight present (Psych) Judgement: Good judgement present (Psych) Objective Data Vital Signs Vital Signs: Vital Signs - 24 hr 03/14/20 16:00 03/14/20 17:08 03/14/20 18:00 Temperature 36.4 C Pulse Rate 106 H 94 99 Respiratory Rate 20 Blood Pressure 98/64 L Pulse Oximetry 96 03/14/20 20:00 03/14/20 22:00 03/15/20 00:00 Temperature 36.3 C L 36.4 C L Pulse Rate 91 92 96 Respiratory Rate 18 20 Blood Pressure 109/60 127/46 L Pulse Oximetry 100 93 03/15/20 02:00 03/15/20 04:00 03/15/20 06:00 Temperature 36.7 C Pulse Rate 99 102 H 103 H Respiratory Rate 18 Blood Pressure 107/63 Pulse Oximetry 98 03/15/20 08:00 03/15/20 10:00 03/15/20 10:06 Temperature 36.7 C Pulse Rate 104 H 123 H Respiratory Rate 16 Blood Pressure 115/63 Pulse Oximetry 98 99 03/15/20 12:00 Temperature 37.6 C Pulse Rate 104 H Respiratory Rate 12 Blood Pressure 111/62 Pulse Oximetry 97 Intake/Output Intake/Output: Intake & Output 03/12/20 03/13/20 03/14/20 03/15/20 23:59 23:59 23:59 23:59 Intake Total 3300 2370 710 480 Output Total 956 750 565 Balance 3300 1414 -40 -85 Meds/Results Medications: Active Medications Generic Name Dose Route Start Last Admin Trade Name Freq PRN Reason Stop Dose Admin Acetaminophen 650 mg 03/12/20 10:28 03/13/20 02:27 Tylenol Tablet PO 650 mg Q4H PRN Administration Mild Pain (1-3) or Fever Filgrastim 300 mcg 03/14/20 19:05 03/15/20 08:13 Neupogen SUB-Q 300 mcg QAM MARY JANE Administration Fluconazole 100 mg 03/13/20 21:00 03/14/20 21:39 Diflucan Tablet PO 100 mg HS MARY JANE Administration Ceftriaxone Sodium/Dextrose 1 gm in 50 mls @ 100 mls/hr 03/13/20 14:00 03/15/20 14:03 Rocephin 1 Gm/D5w 50 Ml IVPB 100 mls/hr Q24H MARY JANE Administration Morphine Sulfate
--- NOTE | 2020-03-15 16:21 | P.PNONC_ITS ---
Progress Note: A/P - Additional Plan Neutropenia. Labs noted. This is secondary to HIV infection. Patient has been started on Neupogen 300 mcg subcu daily until WBC count is more than 5000. Renal to sound showed normal spleen and liver size. HIV infection. Confirmatory testing results are pending. Spontaneous pneumothorax and pneumonia. Chest x-ray reviewed. Patient is on Rocephin. He remains afebrile. We will suggest keeping him in the hospital until WBC count shows improvement. - Time Spent With Patient Total time spent is greater than 50% in coordination of care (as documented) at patient's floor/unit and/or counseling patient: 15 - 25 minutes Subjective Interval history: Neutropenia HIV infection Spontaneous pneumothorax with possible pneumonia Review of Systems - Review of Systems Patient denies any fevers and chills. He denies any night sweats. Denies any cough and shortness of breath. No rash in diarrhea. He is in good spirit. No new complaints. - Neurologic Reports hearing normal, Denies syncope, Denies headache(s), Denies loss of vision, Denies weakness Exam Vital signs: Temp Pulse Resp BP Pulse Ox 37.6 C 100 12 111/62 97 03/15/20 12:00 03/15/20 14:00 03/15/20 12:00 03/15/20 12:00 03/15/20 12:00 Narrative: Lungs are clear to auscultation bilaterally, chest tube is placed Cardiovascular regular rate and no murmurs Abdomen soft nontender nondistended bowel sounds are positive Extremities no edema PN: Objective Data - Labs CBC & Chem 7: 03/15/20 04:40 03/15/20 04:40 Labs: Laboratory Results - last 24 hr 03/15/20 03/15/20 04:40 04:40 WBC 0.8 L* RBC 3.33 L Hgb 10.1 L Hct 30.0 L MCV 90.1 MCH 30.3 MCHC 33.7 RDW 13.2 Plt Count 220 MPV 10.1 Immature Gran % (Auto) 6.3 H Neut % (Auto) 38.0 L Lymph % (Auto) 30.4 [place] % (Auto) 22.8 H Eos % (Auto) 2.5 Baso % (Auto) 0.0 L Lymph # (Auto) 0.24 L [place] # (Auto) 0.2 Eos # (Auto) 0.0 Baso # (Auto) 0.0 Abs Immat Gran (auto) 0.05 H Absolute Neuts (auto) 0.3 L Absolute Nucleated RBC 0.0 Nucleated RBC % 0.0 Sodium 133 L Potassium 3.8 Chloride 102 Carbon Dioxide 27 BUN 15 D Creatinine 0.80 Estim Creat Clear Calc 93 Estimated GFR > 60 Glucose 91 Calcium 8.1 L
--- NOTE | 2020-03-15 17:17 | PM.IMPN ---
Progress Note: A&P Assessment and Plan (1) Spontaneous tension pneumothorax: Code(s): J93.0 - Spontaneous tension pneumothorax Status: Acute Assessment and Plan: Status post right-sided chest tube insertion on 03/12/2020. Dr. Rich consulted for tube management. (2) Systemic inflammatory response syndrome: Code(s): R65.10 - Systemic inflammatory response syndrome (SIRS) of non-infectious origin without acute organ dysfunction Status: Acute Assessment and Plan: SIRS criteria met on arrival with neutropenia, tachycardia and tachypnea. continue to monitor labs (3) Acute respiratory failure with hypoxia: Code(s): J96.01 - Acute respiratory failure with hypoxia Status: Acute Assessment and Plan: Secondary to spontaneous tension pneumothorax. Sp chest tube placement (4) HIV antibody positive: Code(s): Z21 - Asymptomatic human immunodeficiency virus [HIV] infection status Status: Acute Assessment and Plan: Confirmation tests have been obtained and are pending. (5) Elevated troponin: Code(s): R79.89 - Other specified abnormal findings of blood chemistry Status: Acute Assessment and Plan: I suspect this is secondary to tachycardia and hypoxia related to spontaneous tension pneumothorax. Troponins are flat and are not indicative of acute coronary syndrome. (6) Dehydration: Code(s): E86.0 - Dehydration Status: Acute Assessment and Plan: Due to poor oral intake (7) Neutropenia: Code(s): D70.9 - Neutropenia, unspecified Status: Acute Assessment and Plan: Absolute neutrophil count consistent with a moderate neutropenia. On review of previous labs, he has had a mild neutropenia dating back to 2005. Could be due to HIV (confirmation test pending), infection, drug related. (8) Plaque psoriasis: Code(s): L40.0 - Psoriasis vulgaris Status: Acute Assessment and Plan: Otezla currently on hold. Subjective Date/time seen: 03/15/20 17:17 Interval history: Mary Swann II is a 44-year-old male with plaque psoriasis on Otezla who presented to the emergency department earlier this morning via private vehicle from home for evaluation of shortness of breath. Pt found to have a spontaneous pneumothorax. Pt had chest tube placed by surgery. Pt is breathing better. Sats are 100% on 3 liters. Pt has history of HIV, neutropenia and SIRS. Review of Systems Review of Systems: All systems reviewed & are unremarkable except as noted in HPI and below Respiratory: Respiratory: Denies cough and Reports dyspnea Exam Narrative: Exam Narrative: General: Chronically ill-appearing male Chest: Respirations are nonlabored. Chest tube in situ. Dressing is clean, dry, and intact. Respiratory: Crackles heard in the RLL Cardiovascular: Regular rate and rhythm with S1-S2. Gastrointestinal: Abdomen is soft Neurological: Alert and oriented. No gross focal deficits to casual conversation. Psychiatric: Pleasant and cooperative. Objective Data Vital Signs Vital Signs: Vital Signs - 24 hr 03/14/20 18:00 03/14/20 20:00 03/14/20 22:00 Temperature 36.3 C L Pulse Rate 99 91 92 Respiratory Rate 18 Blood Pressure 109/60 Pulse Oximetry 100 03/15/20 00:00 03/15/20 02:00 03/15/20 04:00 Temperature 36.4 C L 36.7 C Pulse Rate 96 99 102 H Respiratory Rate 20 18 Blood Pressure 127/46 L 107/63 Pulse Oximetry 93 98 03/15/20 06:00
[2020-03-15] MEDS: FLUCONAZOLE 100 MG TABLET PO (20:29)
[2020-03-15 20:30] LABS: HIV 1 2 Ag Ab 4th Gen w Rflxs Reactive (Non-reactive); HIV 1 Ab Chg Test Yes; HIV 1 Antibody Positive (Negative); HIV 2 Ab Chg Test Yes; HIV 2 Antibody Negative (Negative)
[2020-03-15 20:45] LABS: Absolute CD4 Count 3 cells/uL (490-1740); Lymphocytes, Absolute 313 cells/uL (850-3900); Percent CD4 Cells 1 % (30-61)
[2020-03-16] VITALS (15 sets, daily range): BP systolic 93–115; BP diastolic 49–68; PULSE 72–112; RESP 16–26; TEMP 35.9–38.2; O2SAT 93–100
[2020-03-16 04:28] LABS: Basophils Percent Auto 1.2 % (0.2-1.2); Eosinophils Percent Auto 1.9 % (0-4.4); Hematocrit 28.5 % (42.0-52.0); Hemoglobin 9.7 g/dL (14.0-18.0); Immature Granulocyte Absolute 0.25 K/mm3 (0.00-0.031); Immature Granulocyte Percent A 15.5 % (0-0.5); Lymphocytes Absolute Auto 0.28 K/mm3 (0.9-3.2); Lymphocytes Percent Auto 17.4 % (18.3-44.2); Mean Corpuscular Hemoglobin 30.6 pg (26-34); Mean Corpuscular Volume 89.9 fl (80-100); Mean Platelet Volume 10.1 fl (7.4-10.4); Monocytes Absolute Auto 0.3 K/mm3 (0.1-0.6); Neutrophils Absolute Auto 0.7 K/mm3 (1.3-6.7); Platelet Count Result 229 k/mm3 (150-375); Red Blood Count 3.17 M/mm3 (4.6-6.20); Red Cell Distribution Width 13.1 % (11.5-14.5)
[2020-03-16 04:40] LABS: Blood Urea Nitrogen 12 mg/dL (9-20); Calcium 8.1 mg/dL (8.4-10.2); Carbon Dioxide 27 mmol/L (22-30); Chloride 100 mmol/L (98-107); Estimated CRCL calculation 93 ml/min; Estimated Glomerular Filt Rate > 60; Glucose 123 mg/dL (75-110); Potassium 3.9 mmol/L (3.4-5.0); Sodium 132 mmol/L (137-145)
[2020-03-16 04:49] LABS: White Blood Count 1.6 K/mm3 (4.5-10.0)
[2020-03-16] MEDS: ACETAMINOPHEN 325 MG TABLET 650 MG PO (09:17)
[2020-03-16] MEDS: FILGRASTIM 300 MCG/ML VIAL SUB-Q (09:20)
[2020-03-16] MEDS: BENZONATATE 100 MG CAPSULE 200 MG PO ×2 (09:44→15:58)
--- NOTE | 2020-03-16 11:08 | PCDIET ---
Nutrition Follow-Up Complete: Nutrition Diagnosis: Predicted suboptimal oral intake related to dx as evidenced by intakes 0-80% with reported weight loss. Nutrition Goal: Patient to consume 75% of meals/supplements Goal met. Patient with variable intakes, but has consumed 100% of several meals and feels his appetite is pretty close to normal. Likes Ensure Compact, but would prefer to have 8oz Ensure Enlive (350kcal, 20g protein) BID. Last recorded weight is 64.6 kg which is down from admission. Bowel Motility: +BM on 03/15/20. Labs Reviewed: WBC (1.6), Glu (123), Na (132), Ca (8.1) Meds Noted: Rocephin, Neupogen, Diflucan Additional Notes: Right chest incision with dressing s/p chest tube. No other skin issues documented. Will continue to monitor with same goals. Nutrition Montioring and Evaluation: Follow up every 5 days.
--- NOTE | 2020-03-16 12:08 | P.PNIM_ITS ---
Progress Note: A&P Assessment and Plan (1) Spontaneous tension pneumothorax: Code(s): J93.0 - Spontaneous tension pneumothorax Status: Acute Assessment and Plan: * Status post right-sided chest tube insertion on 03/12/2020. * Dr. Rich consulted for tube management. (2) Systemic inflammatory response syndrome: Code(s): R65.10 - Systemic inflammatory response syndrome (SIRS) of non-infectious origin without acute organ dysfunction Status: Acute Assessment and Plan: * SIRS criteria met on arrival with neutropenia, tachycardia and tachypnea. * continue to monitor labs (3) Acute respiratory failure with hypoxia: Code(s): J96.01 - Acute respiratory failure with hypoxia Status: Acute Assessment and Plan: * Secondary to spontaneous tension pneumothorax. * Sp chest tube placement * Surgery deciding on changing out chest tube * Daily Cxr ordered (4) HIV antibody positive: Code(s): Z21 - Asymptomatic human immunodeficiency virus [HIV] infection status Status: Acute Assessment and Plan: * Confirmation tests have been obtained and are pending. (5) Elevated troponin: Code(s): R79.89 - Other specified abnormal findings of blood chemistry Status: Acute Assessment and Plan: * I suspect this is secondary to tachycardia and hypoxia related to spontaneous tension pneumothorax. * Troponins are flat and are not indicative of acute coronary syndrome. (6) Dehydration: Code(s): E86.0 - Dehydration Status: Acute Assessment and Plan: * Due to poor oral intake (7) Neutropenia: Code(s): D70.9 - Neutropenia, unspecified Status: Acute Assessment and Plan: * Absolute neutrophil count consistent with a moderate neutropenia. * On review of previous labs, he has had a mild neutropenia dating back to 2005. * Could be due to HIV (confirmation test pending), infection, drug related. * Covid negative * Wcc is 1.6 * Pt is on filgrastim (8) Plaque psoriasis: Code(s): L40.0 - Psoriasis vulgaris Status: Acute Assessment and Plan: * Otezla currently on hold. Subjective Date/time seen: 03/16/20 12:08 Interval history: Mary Swann II is a 44-year-old male with plaque psoriasis on Otezla who presented to the emergency department earlier this morning via private vehicle from home for evaluation of shortness of breath. Pt found to have a spontaneous pneumothorax. Pt had chest tube placed by surgery. Pt is breathing better. Sats are 93 on RA Pt is having a low grade fever Pt has history of HIV, neutropenia and SIRS. Mild cough and chest discomfort otherwise is ok Review of Systems Review of Systems: All systems reviewed & are unremarkable except as noted in HPI and below Exam Narrative: Exam Narrative: General: Chronically ill-appearing male Chest: Respirations are nonlabored. Chest tube in situ. Dressing is clean, dry, and intact with air leak Respiratory: Crackles heard in the RLL Cardiovascular: Re
--- NOTE | 2020-03-16 12:08 | PM.IMPN ---
Progress Note: A&P Assessment and Plan (1) Spontaneous tension pneumothorax: Code(s): J93.0 - Spontaneous tension pneumothorax Status: Acute Assessment and Plan: Status post right-sided chest tube insertion on 03/12/2020. Dr. Rich consulted for tube management. (2) Systemic inflammatory response syndrome: Code(s): R65.10 - Systemic inflammatory response syndrome (SIRS) of non-infectious origin without acute organ dysfunction Status: Acute Assessment and Plan: SIRS criteria met on arrival with neutropenia, tachycardia and tachypnea. continue to monitor labs (3) Acute respiratory failure with hypoxia: Code(s): J96.01 - Acute respiratory failure with hypoxia Status: Acute Assessment and Plan: Secondary to spontaneous tension pneumothorax. Sp chest tube placement Surgery deciding on changing out chest tube Daily Cxr ordered (4) HIV antibody positive: Code(s): Z21 - Asymptomatic human immunodeficiency virus [HIV] infection status Status: Acute Assessment and Plan: Confirmation tests have been obtained and are pending. (5) Elevated troponin: Code(s): R79.89 - Other specified abnormal findings of blood chemistry Status: Acute Assessment and Plan: I suspect this is secondary to tachycardia and hypoxia related to spontaneous tension pneumothorax. Troponins are flat and are not indicative of acute coronary syndrome. (6) Dehydration: Code(s): E86.0 - Dehydration Status: Acute Assessment and Plan: Due to poor oral intake (7) Neutropenia: Code(s): D70.9 - Neutropenia, unspecified Status: Acute Assessment and Plan: Absolute neutrophil count consistent with a moderate neutropenia. On review of previous labs, he has had a mild neutropenia dating back to 2005. Could be due to HIV (confirmation test pending), infection, drug related. Covid negative Wcc is 1.6 Pt is on filgrastim (8) Plaque psoriasis: Code(s): L40.0 - Psoriasis vulgaris Status: Acute Assessment and Plan: Otezla currently on hold. Subjective Date/time seen: 03/16/20 12:08 Interval history: Mary Swann II is a 44-year-old male with plaque psoriasis on Otezla who presented to the emergency department earlier this morning via private vehicle from home for evaluation of shortness of breath. Pt found to have a spontaneous pneumothorax. Pt had chest tube placed by surgery. Pt is breathing better. Sats are 93 on RA Pt is having a low grade fever Pt has history of HIV, neutropenia and SIRS. Mild cough and chest discomfort otherwise is ok Review of Systems Review of Systems: All systems reviewed & are unremarkable except as noted in HPI and below Exam Narrative: Exam Narrative: General: Chronically ill-appearing male Chest: Respirations are nonlabored. Chest tube in situ. Dressing is clean, dry, and intact with air leak Respiratory: Crackles heard in the RLL Cardiovascular: Regular rate and rhythm with S1-S2. Gastrointestinal: Abdomen is soft Neurological: Alert and oriented. No gross focal deficits to casual conversation. Psychiatric: Pleasant and cooperative. Objective Data Vital Signs Vital Signs: Vital Signs - 24 hr 03/15/20 14:00 03/15/20 16:00 03/15/20 18:00 Temperature 37.0 C Pulse Rate 100 97 95 Respiratory Rate 18 Blood Pressure 107/63 Pulse Oximetry 96 03/15/20 20:00 03/15/20 22:00 03/15/20 23:44 Temperature 36.7
--- NOTE | 2020-03-16 12:38 | PC.NURSE ---
This patient, Mary Swann II, was transferred to preop via bed on 03/16/20 at 1232. [facility] Patient to be transferred to [id number] post op. Report was given to HAKEEM Wagner on 3rg med/surg @ [id number].
--- NOTE | 2020-03-16 13:02 | WPDANESEPPF ---
Anes - Initial Pre Proc Eval Procedure: Operation Date: 03/16/20 13:00 Proposed Procedures p Right Chest Tube Insertion - Pamela Rich MD Date/Time: 03/16/20 13:02 Surgeon: Jose Miguel West MD Pre Op Diagnosis: Shortness of breath. Patient Data Age: 44 Gender: M Height: 5 ft 9 in Weight: 64.6 kg Last Vital Signs Temp 96.9 F L 03/16/20 12:55 Pulse 92 03/16/20 12:55 Resp 20 03/16/20 12:55 BP 96/60 L 03/16/20 12:55 Pulse Ox 98 03/16/20 12:55 Allergies Allergy/AdvReac Type Severity Reaction Status Date / Time No Known Allergies Allergy Verified 03/12/20 08:44 Home Medications Medication Instructions Recorded Confirmed Type apremilast [Otezla] 25 mg PO BID 03/12/20 03/12/20 History Laboratory Tests 03/12/20 03/12/20 03/16/20 08:56 08:59 04:20 WBC 1.6 K/mm3 L* K/mm3 (4.5-10.0) RBC 3.17 M/mm3 L M/mm3 (4.6-6.20) Hgb 9.7 g/dL L g/dL (14.0-18.0) Hct 28.5 % L % (42.0-52.0) MCV 89.9 fl fl (80-100) MCH 30.6 pg pg (26-34) MCHC 34.0 g/dl g/dl (32-36) RDW 13.1 % % (11.5-14.5) Plt Count 229 k/mm3 k/mm3 (150-375) MPV 10.1 fl fl (7.4-10.4) Immature Gran % (Auto) 15.5 % H % (0-0.5) Neut % (Auto) 46.0 % % (45.5-73.1) Lymph % (Auto) 17.4 % L % (18.3-44.2) [place] % (Auto) 18.0 % H % (2.6-8.5) Eos % (Auto) 1.9 % % (0-4.4) Baso % (Auto) 1.2 % % (0.2-1.2) Lymph # (Auto) 0.28 K/mm3 L K/mm3 (0.9-3.2) [place] # (Auto) 0.3 K/mm3 K/mm3 (0.1-0.6) Eos # (Auto) 0.0 K/mm3 K/mm3 (0-0.3) Baso # (Auto) 0.0 K/mm3 K/mm3 (0.0-0.1) Abs Immat Gran (auto) 0.25 K/mm3 H K/mm3 (0.00-0.031) Absolute Neuts (auto) 0.7 K/mm3 L K/mm3 (1.3-6.7) Absolute Nucleated RBC 0.0 K/mm3 K/mm3 (0.0-0.012) Nucleated RBC % 0.0 % % (0.0-0.2) Sodium Potassium Chloride Carbon Dioxide BUN Creatinine Estim Creat Clear Calc Estimated GFR Glucose Calcium Absolute Lymphocytes 313 cells/uL L cells/uL (850-3900) % CD4 Cells 1 % L % (30-61) Absolute CD4 Count 3 cells/uL L cells/uL (490-1740) HIV-1 Antibody Positive A (Negative) HIV-2 Antibody Negative (Negative) HIV 1&2 Ag/Ab, 4th Gen Reactive A (Non-reactive) 03/16/20 04:20 WBC RBC Hgb Hct MCV MCH MCHC RDW Plt Count MPV Immature Gran % (Auto) Neut % (Auto) Lymph % (Auto) [place] % (Auto) Eos % (Auto) Baso % (Auto) Lymph # (Auto) [place] # (Auto) Eos # (Auto) Baso # (Auto) Abs Immat Gran (auto) Absolute Neuts (auto) Absolute Nucleated RBC Nucleated RBC % Sodium 132 mmol/L L mmol/L (137-145) Potassium 3.9 mmol/L mmol/L (3.4-5.0) Chloride 100 mmol/L mmol/L (98-107) Carbon Dioxide 27 mmol/L mmol/L (22-30) BUN 12 mg/dL mg/dL (9-20) Creatinine 0.80 mg/dL mg/dL (0.7-1.3) Estim Creat Clear Calc 93 ml/min ml/min Estimated GFR > 60 (59 - ) Glucose 123 mg/dL H mg/dL (75-110) Calcium 8.1 mg/dL L mg/dL (8.4-10.2) Absolute Lymphocytes % CD4 Cells Absolute CD4 Count HIV-1 Antibody HIV-2 Antibody HIV 1&2 Ag/Ab, 4th Gen Patient hx anesthesia problems: none Family hx anesthesia problems: none PMFSH Past Medical History Medical History (Updated 03/16/20 @ 13:04 by Guero Ruff MD) Acute respiratory failure with hypoxia HIV antibody positive Plaque psoriasis Treated with Otezla. Surgical History Surgical History (Updated 03/15/20 @ 16:24 by Matt Romero MD) No
--- NOTE | 2020-03-16 13:49 | P.OP_ITS ---
Procedure Note - Detailed Date of procedure: 03/16/20 Pre-op diagnosis: Shortness of breath. persistent right pneumothorax Post-op diagnosis: same Procedure performed: placement of 28 Czech right chest tube Description of procedure: The patient was taken to the operating room and placed in the supine position. After adequate sedation was achieved per anesthesia, the patient was prepped and draped in the normal sterile fashion. A time-out was then done to verify the patient's identity, as well as the procedure being performed. I began by removing the previously placed Pneumocath in the right chest. I then localized this opening including up and over the 4th rib. Once the area was completely new locally anesthetized, I used a Kylie clamp to gain entrance into the pleural space. An immediate teague of air was noted. I then spread out the opening with a Kylie clamp. I then placed a 28 Czech chest tube into the right chest and directed this apically and anteriorly. There was also noted to be a moderate amount pleural fluid in the chest tube as well as additional air. Once this was positioned adequately, I sutured in the chest tube with silk suture x2. Sterile dressing was then placed including Vaseline gauze around the chest tube. The patient tolerated the procedure and will be transferred to the recovery room in stable condition. Implants: 28 Czech right chest tube Anesthesia: local and other ( sedation local) Surgeon: Pamela Rich MD Estimated blood loss (mL): 0 Drains: No Packing: No Pathology: none sent Complications: No immediate complications Condition: stable Disposition: PACU Findings: moderate teague of air, moderate pleural fluid
[2020-03-16] MEDS: LACTATED RINGERS 1,000 ML 30 ML IV CONT (13:50)
[2020-03-16] MEDS: LIDO 1%/EPINEPHRINE 1:100,000 20 ML VIAL INFILTRATE (13:53)
--- NOTE | 2020-03-16 14:18 | SUR.PHASEI ---
1418 - dr. so at bedside, reviewed xray report. no orders given
[2020-03-16] MEDS: MORPHINE SULFATE 4 MG/ML INJ IV PUSH ×2 (15:36→19:33)
--- NOTE | 2020-03-16 17:34 | WPDONCPN ---
Progress Note: A/P - Additional Plan Neutropenia. HIV testing came back positive. White blood cell count has improved to 1.6. Continue Neupogen 300 mcg subcu daily until further improvement in WBC count. HIV infection. Final result confirmed the findings. Spontaneous pneumothorax in pneumonia. Chest tube has been repositioned with improvement in pneumothorax on the repeat chest x-ray. He is also on Rocephin and remains afebrile. Patient has been provided with my office information. He will follow with my office next week for repeat blood check. - Time Spent With Patient Total time spent is greater than 50% in coordination of care (as documented) at patient's floor/unit and/or counseling patient: 15 - 25 minutes Subjective Interval history: Neutropenia HIV infection Spontaneous pneumothorax with possible pneumonia Review of Systems - Review of Systems Patient looks quite comfortable. He denies any fevers and chills. Breathing has improved but does have some soreness at the site of chest tube. Denies any bleeding. No other new complaints. - Neurologic Reports hearing normal, Denies syncope, Denies headache(s), Denies loss of vision, Denies weakness Exam Vital signs: Siria Florentino. Assessment of coma and impaired consciousness. A practical scale. Lancet 1974; 2:81-4. Narrative: Lungs are clear to auscultation bilaterally Cardiovascular regular rate rhythm no murmurs Abdomen soft nontender nondistended bowel sounds are positive Extremities no edema PN: Objective Data - Labs CBC & Chem 7: 03/16/20 04:20 03/16/20 04:20 Labs: Laboratory Results - last 24 hr 03/12/20 03/12/20 03/16/20 08:56 08:59 04:20 WBC 1.6 L* RBC 3.17 L Hgb 9.7 L Hct 28.5 L MCV 89.9 MCH 30.6 MCHC 34.0 RDW 13.1 Plt Count 229 MPV 10.1 Immature Gran % (Auto) 15.5 H Neut % (Auto) 46.0 Lymph % (Auto) 17.4 L [place] % (Auto) 18.0 H Eos % (Auto) 1.9 Baso % (Auto) 1.2 Lymph # (Auto) 0.28 L [place] # (Auto) 0.3 Eos # (Auto) 0.0 Baso # (Auto) 0.0 Abs Immat Gran (auto) 0.25 H Absolute Neuts (auto) 0.7 L Absolute Nucleated RBC 0.0 Nucleated RBC % 0.0 Sodium Potassium Chloride Carbon Dioxide BUN Creatinine Estim Creat Clear Calc Estimated GFR Glucose Calcium Absolute Lymphocytes 313 L % CD4 Cells 1 L Absolute CD4 Count 3 L HIV-1 Antibody Positive A HIV-2 Antibody Negative HIV 1&2 Ag/Ab, 4th Gen Reactive A 03/16/20 04:20 WBC RBC Hgb Hct MCV MCH MCHC RDW Plt Count MPV Immature Gran % (Auto) Neut % (Auto) Lymph % (Auto) [place] % (Auto) Eos % (Auto) Baso % (Auto) Lymph # (Auto) [place] # (Auto) Eos # (Auto) Baso # (Auto) Abs Immat Gran (auto) Absolute Neuts (auto) Absolute Nucleated RBC Nucleated RBC % Sodium 132 L Potassium 3.9 Chloride 100 Carbon Dioxide 27 BUN 12 Creatinine 0.80 Estim Creat Clear Calc 93 Estimated GFR > 60 Glucose 123 H Calcium 8.1 L Absolute Lymphocytes % CD4 Cells Absolute CD4 Count HIV-1 Antibody HIV-2 Antibody HIV 1&2 Ag/Ab, 4th Gen
[2020-03-16] MEDS: FLUCONAZOLE 100 MG TABLET PO (21:10)
[2020-03-17] VITALS (7 sets, daily range): BP systolic 101–106; BP diastolic 56–65; PULSE 86–99; RESP 16–20; TEMP 36.8–37.7; O2SAT 94–99
[2020-03-17] MEDS: MORPHINE SULFATE 4 MG/ML INJ IV PUSH ×7 (00:06→22:07)
[2020-03-17] MEDS: ACETAMINOPHEN 325 MG TABLET 650 MG PO (06:27)
[2020-03-17 06:35] LABS: Basophils Absolute Auto 0.1 K/mm3 (0.0-0.1); Basophils Percent Auto 1.3 % (0.2-1.2); Hemoglobin 9.6 g/dL (14.0-18.0); Lymphocytes Absolute Auto 0.38 K/mm3 (0.9-3.2); Lymphocytes Percent Auto 9.5 % (18.3-44.2); Mean Corpuscular HGB Conc 33.1 g/dl (32-36); Mean Corpuscular Hemoglobin 30.4 pg (26-34); Mean Corpuscular Volume 91.8 fl (80-100); Mean Platelet Volume 10.3 fl (7.4-10.4); Monocytes Absolute Auto 0.5 K/mm3 (0.1-0.6); Monocytes Percent Auto 13.5 % (2.6-8.5); Neutrophils Absolute Auto 2.8 K/mm3 (1.3-6.7); Neutrophils Percent Auto 69.7 % (45.5-73.1); Platelet Count Result 255 k/mm3 (150-375); Red Blood Count 3.16 M/mm3 (4.6-6.20); Red Cell Distribution Width 13.4 % (11.5-14.5)
[2020-03-17 06:37] LABS: Blood Urea Nitrogen 9 mg/dL (9-20); Calcium 8.3 mg/dL (8.4-10.2); Carbon Dioxide 29 mmol/L (22-30); Chloride 97 mmol/L (98-107); Estimated CRCL calculation 105 ml/min; Estimated Glomerular Filt Rate > 60; Glucose 92 mg/dL (75-110); Sodium 130 mmol/L (137-145)
[2020-03-17 07:17] LABS: Anisocytosis 1+ (NORMAL); Ovalocytes 1+ (NORMAL); Platelet Estimate Adequate (Adequate)
--- NOTE | 2020-03-17 08:52 | PM.PNGS ---
Progress Note: A&P Assessment and Plan (1) Spontaneous tension pneumothorax: Code(s): J93.0 - Spontaneous tension pneumothorax Status: Acute Assessment and Plan: still c small air leak and tiny apical PTX, keep on suction for now, repeat CXR in am (2) HIV (human immunodeficiency virus infection): Code(s): B20 - Human immunodeficiency virus [HIV] disease Status: Acute Assessment and Plan: mgmt per medical team, WBC trending up Subjective Subjective Date/Time Seen: 03/17/20 08:52 feels ok, no complaints, reports no difficulty breathing Review of Systems Constitutional: Constitutional: Reports fatigue, Reports lethargy and Reports weakness Cardiovascular: Cardiovascular: Denies chest pain Respiratory: Respiratory: Denies cough, Denies hemoptysis, Denies dyspnea and Denies wheezing Gastrointestinal: Gastrointestinal: Denies abdominal pain, Denies bloating, Denies constipation, Denies diarrhea, Denies nausea and Denies vomiting Exam Const: General: no acute distress Resp: Auscultation: clear to auscultation bilaterally Other: small air leak R CT c cough Cardio: Rate: regular rate Rhythm: regular rhythm GI: Other: SNTND Objective Data Vital Signs Vital Signs: Vital Signs - 24 hr 03/16/20 09:17 03/16/20 10:00 03/16/20 12:55 Temperature 38.2 C H 36.1 C L Pulse Rate 98 92 Respiratory Rate 20 Blood Pressure 96/60 L Pulse Oximetry 98 03/16/20 13:00 03/16/20 13:50 03/16/20 14:05 Temperature 36.7 C 36.5 C Pulse Rate 93 87 86 Respiratory Rate 16 26 H 18 Blood Pressure 98/62 L 96/50 L 93/49 L Pulse Oximetry 100 100 100 03/16/20 14:20 03/16/20 14:35 03/16/20 15:13 Temperature 35.9 C L Pulse Rate 78 72 81 Respiratory Rate 20 20 16 Blood Pressure 98/56 L 96/58 L 93/57 L Pulse Oximetry 100 100 99 03/16/20 16:15 03/16/20 21:43 03/17/20 06:00 Temperature 36.2 C L 36.8 C 37.7 C H Pulse Rate 81 84 86 Respiratory Rate 16 16 16 Blood Pressure 101/60 110/65 106/58 L Pulse Oximetry 98 100 98 03/17/20 06:27 03/17/20 07:49 Temperature 37.7 C H Pulse Rate Respiratory Rate Blood Pressure Pulse Oximetry 94 Intake/Output Intake/Output: Intake & Output 03/14/20 03/15/20 03/16/20 03/17/20 23:59 23:59 23:59 23:59 Intake Total 710 1320 470 440 Output Total 821 872 5843 760 Balance -40 693 -1524 -648 Meds/Results Medications: Active Medications Generic Name Dose Route Start Last Admin Trade Name Freq PRN Reason Stop Dose Admin Acetaminophen 650 mg 03/12/20 10:28 03/17/20 06:27 Tylenol Tablet PO 650 mg Q4H PRN Administration Mild Pain (1-3) or Fever Benzonatate 200 mg 03/16/20 09:20 03/16/20 15:58 Tessalon Perles PO 200 mg TID MARY JANE Administration Fentanyl Citrate 25 mcg 03/16/20 13:06 Sublimaze IV PUSH Q2M PRN Pain Filgrastim 300 mcg 03/14/20 19:05 03/16/20 09:20 Neupogen SUB-Q 300 mcg QAM MARY JANE Administration Fluconazole 100 mg 03/13/20 21:00 03/16/20 21:10 Diflucan Tablet PO 100 mg HS MARY JANE Administration Ceftriaxone Sodium/Dextrose 1 gm in 50 mls @ 100 mls/hr 03/13/20 14:00 03/16/20 16:00 Rocephin 1 Gm/D5w 50 Ml IVPB Infused Q24H MARY JANE Infusion Lactated Ringer's 1,000 mls @ 30 mls/hr 03/16/20 13:10 03/16/20 14:40 Lr - Lactated Ringers Iv IV CONT Infused .Q24H MARY JANE Infusion Morphine Sulfate 4 mg 03/12/20 10:28 03/17/20 05:05 Morphine Sulfate Inj IV PUSH 4 mg Q2H PRN Administration Pain Rated 7-10 Ondansetron HCl 4 mg 03/12/20 10:28 Zofran Inj IV PUSH Q4H PRN Nausea Ondansetron HCl 4 mg 03/16/20 13:06 Zofran Inj IV PUSH ONCE PRN Nausea Radiology Results: ITS Impressions Abdomen Ultrasound 03/14/20 15:49 IMPRESSION: 1. Normal spleen size. 2. Cholelithiasis. Labs Labs: Laboratory Results - last 24 hr 03/17/20 03/17/20 06:03 06:03 WBC 4.0 L RBC 3.16 L Hgb
[2020-03-17] MEDS: BENZONATATE 100 MG CAPSULE 200 MG PO ×3 (10:29→18:08)
[2020-03-17] MEDS: FILGRASTIM 300 MCG/ML VIAL SUB-Q (10:30)
--- NOTE | 2020-03-17 11:55 | P.PNIM_ITS ---
Progress Note: A&P Assessment and Plan (1) Spontaneous tension pneumothorax: Code(s): J93.0 - Spontaneous tension pneumothorax Status: Acute Assessment and Plan: * Status post right-sided chest tube insertion on 03/12/2020. * Dr. Rich consulted for tube management. (2) Systemic inflammatory response syndrome: Code(s): R65.10 - Systemic inflammatory response syndrome (SIRS) of non-infectious origin without acute organ dysfunction Status: Resolved Assessment and Plan: * SIRS criteria met on arrival with neutropenia, tachycardia and tachypnea. * continue to monitor labs * wcc improved (3) Acute respiratory failure with hypoxia: Code(s): J96.01 - Acute respiratory failure with hypoxia Status: Inactive Assessment and Plan: * Secondary to spontaneous tension pneumothorax. * Chest tube changed out because of air leak yesterday to bigger tube * Daily Cxr ordered (4) HIV antibody positive: Code(s): Z21 - Asymptomatic human immunodeficiency virus [HIV] infection status Status: Inactive Assessment and Plan: * Confirmation tests have been obtained and are pending. (5) Elevated troponin: Code(s): R79.89 - Other specified abnormal findings of blood chemistry Status: Acute Assessment and Plan: * I suspect this is secondary to tachycardia and hypoxia related to spontaneous tension pneumothorax. * Troponins are flat and are not indicative of acute coronary syndrome. (6) Dehydration: Code(s): E86.0 - Dehydration Status: Acute Assessment and Plan: * Due to poor oral intake adviced to eat more (7) Neutropenia: Code(s): D70.9 - Neutropenia, unspecified Status: Acute Assessment and Plan: * Absolute neutrophil count consistent with a moderate neutropenia. * On review of previous labs, he has had a mild neutropenia dating back to 2005. * Could be due to HIV (confirmation test pending), infection, drug related. * Covid negative * Wcc is 4 can stop filgrastim (8) Plaque psoriasis: Code(s): L40.0 - Psoriasis vulgaris Status: Acute Assessment and Plan: * Otezla currently on hold. Subjective Date/time seen: 03/17/20 11:55 Interval history: Mary Swann II is a 44-year-old male with plaque psoriasis on Otezla who presented to the emergency department earlier this morning via private vehicle from home for evaluation of shortness of breath. Pt found to have a spontaneous pneumothorax. Pt has history of HIV, neutropenia and SIRS. Pt had chest tube changed out due to air leak Pts Wcc are back up now Review of Systems Review of Systems: Narrative: No compliants of cough or fever All systems reviewed & are unremarkable except as noted in HPI and below Exam Narrative: Exam Narrative: General: Chronically ill-appearing male Chest: Respirations are nonlabored. Chest tube in situ. Dressing is clean, dry, and intact with air leak Respiratory: decreased BS in RLL Cardiovascular: Regular rate and rhythm with
--- NOTE | 2020-03-17 11:55 | PM.IMPN ---
Progress Note: A&P Assessment and Plan (1) Spontaneous tension pneumothorax: Code(s): J93.0 - Spontaneous tension pneumothorax Status: Acute Assessment and Plan: Status post right-sided chest tube insertion on 03/12/2020. Dr. Rich consulted for tube management. (2) Systemic inflammatory response syndrome: Code(s): R65.10 - Systemic inflammatory response syndrome (SIRS) of non-infectious origin without acute organ dysfunction Status: Resolved Assessment and Plan: SIRS criteria met on arrival with neutropenia, tachycardia and tachypnea. continue to monitor labs wcc improved (3) Acute respiratory failure with hypoxia: Code(s): J96.01 - Acute respiratory failure with hypoxia Status: Inactive Assessment and Plan: Secondary to spontaneous tension pneumothorax. Chest tube changed out because of air leak yesterday to bigger tube Daily Cxr ordered (4) HIV antibody positive: Code(s): Z21 - Asymptomatic human immunodeficiency virus [HIV] infection status Status: Inactive Assessment and Plan: Confirmation tests have been obtained and are pending. (5) Elevated troponin: Code(s): R79.89 - Other specified abnormal findings of blood chemistry Status: Acute Assessment and Plan: I suspect this is secondary to tachycardia and hypoxia related to spontaneous tension pneumothorax. Troponins are flat and are not indicative of acute coronary syndrome. (6) Dehydration: Code(s): E86.0 - Dehydration Status: Acute Assessment and Plan: Due to poor oral intake adviced to eat more (7) Neutropenia: Code(s): D70.9 - Neutropenia, unspecified Status: Acute Assessment and Plan: Absolute neutrophil count consistent with a moderate neutropenia. On review of previous labs, he has had a mild neutropenia dating back to 2005. Could be due to HIV (confirmation test pending), infection, drug related. Covid negative Wcc is 4 can stop filgrastim (8) Plaque psoriasis: Code(s): L40.0 - Psoriasis vulgaris Status: Acute Assessment and Plan: Otezla currently on hold. Subjective Date/time seen: 03/17/20 11:55 Interval history: Mary Swann II is a 44-year-old male with plaque psoriasis on Otezla who presented to the emergency department earlier this morning via private vehicle from home for evaluation of shortness of breath. Pt found to have a spontaneous pneumothorax. Pt has history of HIV, neutropenia and SIRS. Pt had chest tube changed out due to air leak Pts Wcc are back up now Review of Systems Review of Systems: Narrative: No compliants of cough or fever All systems reviewed & are unremarkable except as noted in HPI and below Exam Narrative: Exam Narrative: General: Chronically ill-appearing male Chest: Respirations are nonlabored. Chest tube in situ. Dressing is clean, dry, and intact with air leak Respiratory: decreased BS in RLL Cardiovascular: Regular rate and rhythm with S1-S2. Gastrointestinal: Abdomen is soft Neurological: Alert and oriented. No gross focal deficits to casual conversation. Psychiatric: Pleasant and cooperative. Objective Data Vital Signs Vital Signs: Vital Signs - 24 hr 03/16/20 12:55 03/16/20 13:00 03/16/20 13:50 Temperature 36.1 C L 36.7 C 36.5 C Pulse Rate 92 93 87 Respiratory Rate 20 16 26 H Blood Pressure 96/60 L 98/62 L 96/50 L Pulse Oximetry 98 100 100 03/16/20 14:05 03/16/20 14:20
[2020-03-17 21:55] LABS: HIV 1 RNA PCR 107000 Copies/mL; HIV 1 RNA PCR 5.03 Log cps/mL
[2020-03-18] MEDS: MORPHINE SULFATE 4 MG/ML INJ IV PUSH ×5 (00:03→21:21)
[2020-03-18 06:00] VITALS: BP 96/60; PULSE 96; RESP 20; TEMP 37.7; O2SAT 94
[2020-03-18] MEDS: BENZONATATE 100 MG CAPSULE 200 MG PO ×3 (09:25→18:24)
--- NOTE | 2020-03-18 12:40 | P.PNGS_ITS ---
Progress Note: A&P Assessment and Plan (1) Spontaneous tension pneumothorax: Code(s): J93.0 - Spontaneous tension pneumothorax Status: Acute Assessment and Plan: * Keep CT to suction one more day. Will get 2 view CXR in AM and possibly place to water seal then. Chest tube out once no more air leak and pneumothorax resolved. (2) HIV (human immunodeficiency virus infection): Code(s): B20 - Human immunodeficiency virus [HIV] disease Status: Acute Subjective Subjective Date/Time Seen: 03/18/20 12:40 Pain controlled. Taking deep breaths without much difficulty. Using spirometer. Exam Resp: Effort & Inspection: normal respiratory effort Auscultation: clear to auscultation bilaterally Other: Chest tube in place, no significant air leak seen today Objective Data Vital Signs Vital Signs: Vital Signs - 24 hr 03/17/20 14:00 03/17/20 22:00 03/18/20 06:00 Temperature 36.8 C 37.2 C 37.7 C H Pulse Rate 94 99 96 Respiratory Rate 18 20 20 Blood Pressure 102/65 101/56 L 96/60 L Pulse Oximetry 99 98 94 Intake/Output Intake/Output: Intake & Output 03/15/20 03/16/20 03/17/20 03/18/20 23:59 23:59 23:59 23:59 Intake Total 5701 121 3890 490 Output Total 564 8328 201 426 Balance 255 -5123 935 460 Meds/Results Medications: Active Medications Generic Name Dose Route Start Last Admin Trade Name Freq PRN Reason Stop Dose Admin Acetaminophen 650 mg 03/12/20 10:28 03/17/20 06:27 Tylenol Tablet PO 650 mg Q4H PRN Administration Mild Pain (1-3) or Fever Hydrocodone Bitart/Acetaminophen 1 tab 03/18/20 08:44 03/18/20 09:23 [place] 5-325 Mg PO 1 tab Q6H PRN Administration Pain Rated 4-6 Benzonatate 200 mg 03/16/20 09:20 03/18/20 09:25 Tessalon Perles PO 200 mg TID MARY JANE Administration Morphine Sulfate 4 mg 03/12/20 10:28 03/18/20 07:28 Morphine Sulfate Inj IV PUSH 4 mg Q2H PRN Administration Pain Rated 7-10 Ondansetron HCl 4 mg 03/12/20 10:28 Zofran Inj IV PUSH Q4H PRN Nausea Ondansetron HCl 4 mg 03/16/20 13:06 Zofran Inj IV PUSH ONCE PRN Nausea Radiology Results: ITS Impressions Abdomen Ultrasound 03/14/20 15:49 IMPRESSION: 1. Normal spleen size. 2. Cholelithiasis. Chest X-Ray 03/18/20 08:05 IMPRESSION: 1. Unchanged small right pneumothorax with right chest tube. 2. Small left pleural effusion with increasing atelectasis and/or pneumonia in the left lower lung zone. Labs Labs: Laboratory Results - last 24 hr 03/12/20 08:56 HIV-1 RNA logcopies/mL 5.03 H HIV-1 RNA PCR copies/ml [id number] H Quality VTE Prophylaxis VTE prophylaxis: mechanical ordered
[2020-03-18 14:00] VITALS: BP 96/61; PULSE 73; RESP 18; TEMP 36.6; O2SAT 97
--- NOTE | 2020-03-18 16:24 | P.PNIM_ITS ---
Progress Note: A&P Assessment and Plan (1) Spontaneous tension pneumothorax: Code(s): J93.0 - Spontaneous tension pneumothorax Status: Acute Assessment and Plan: * Status post right-sided chest tube insertion on 03/12/2020. * Dr. Rich consulted for tube management. * Possible chest tube to water seal tomorrow (2) Systemic inflammatory response syndrome: Code(s): R65.10 - Systemic inflammatory response syndrome (SIRS) of non-infectious origin without acute organ dysfunction Status: Resolved Assessment and Plan: * SIRS criteria met on arrival with neutropenia, tachycardia and tachypnea. * continue to monitor labs * wcc improved (3) Acute respiratory failure with hypoxia: Code(s): J96.01 - Acute respiratory failure with hypoxia Status: Inactive Assessment and Plan: * Secondary to spontaneous tension pneumothorax. * Chest tube changed out because of air leak yesterday to bigger tube * Daily Cxr ordered (4) HIV antibody positive: Code(s): Z21 - Asymptomatic human immunodeficiency virus [HIV] infection status Status: Inactive Assessment and Plan: * pt is hiv positive (5) Elevated troponin: Code(s): R79.89 - Other specified abnormal findings of blood chemistry Status: Acute Assessment and Plan: * Secondary to tachycardia and hypoxia related to spontaneous tension pneumothorax. * Troponins are flat and are not indicative of acute coronary syndrome. (6) Dehydration: Code(s): E86.0 - Dehydration Status: Resolved Assessment and Plan: * Due to poor oral intake adviced to eat more (7) Neutropenia: Code(s): D70.9 - Neutropenia, unspecified Status: Resolved Assessment and Plan: * Pt has hiv * Covid negative * Wcc is 4 can stopped filgrastim yesterday (8) Plaque psoriasis: Code(s): L40.0 - Psoriasis vulgaris Status: Acute Assessment and Plan: * Otezla currently on hold. Subjective Date/time seen: 03/18/20 16:24 Interval history: Mary Swann II is a 44-year-old male with plaque psoriasis on Otezla who presented to the emergency department earlier this morning via private vehicle from home for evaluation of shortness of breath. Pt found to have a spontaneous pneumothorax. Pt has history of HIV, neutropenia and SIRS. Pt had chest tube changed out due to air leak Pts Wcc are back up now pt feels better, some mild chest discomfort cxr reviewed, surgery want to switch to water seal tomorrow. Review of Systems Review of Systems: All systems reviewed & are unremarkable except as noted in HPI and below Respiratory: Comments: chest discomfort Exam Narrative: Exam Narrative: General: Chronically ill-appearing male Chest: Respirations are nonlabored. Chest tube in situ. Dressing is clean, dry, and intact Cardiovascular: Regular rate and rhythm with S1-S2. Gastrointestinal: Abdomen is soft Neurological: Alert and oriented. No gross focal deficits to casual conver
--- NOTE | 2020-03-18 16:24 | PM.IMPN ---
Progress Note: A&P Assessment and Plan (1) Spontaneous tension pneumothorax: Code(s): J93.0 - Spontaneous tension pneumothorax Status: Acute Assessment and Plan: Status post right-sided chest tube insertion on 03/12/2020. Dr. Rich consulted for tube management. Possible chest tube to water seal tomorrow (2) Systemic inflammatory response syndrome: Code(s): R65.10 - Systemic inflammatory response syndrome (SIRS) of non-infectious origin without acute organ dysfunction Status: Resolved Assessment and Plan: SIRS criteria met on arrival with neutropenia, tachycardia and tachypnea. continue to monitor labs wcc improved (3) Acute respiratory failure with hypoxia: Code(s): J96.01 - Acute respiratory failure with hypoxia Status: Inactive Assessment and Plan: Secondary to spontaneous tension pneumothorax. Chest tube changed out because of air leak yesterday to bigger tube Daily Cxr ordered (4) HIV antibody positive: Code(s): Z21 - Asymptomatic human immunodeficiency virus [HIV] infection status Status: Inactive Assessment and Plan: pt is hiv positive (5) Elevated troponin: Code(s): R79.89 - Other specified abnormal findings of blood chemistry Status: Acute Assessment and Plan: Secondary to tachycardia and hypoxia related to spontaneous tension pneumothorax. Troponins are flat and are not indicative of acute coronary syndrome. (6) Dehydration: Code(s): E86.0 - Dehydration Status: Resolved Assessment and Plan: Due to poor oral intake adviced to eat more (7) Neutropenia: Code(s): D70.9 - Neutropenia, unspecified Status: Resolved Assessment and Plan: Pt has hiv Covid negative Wcc is 4 can stopped filgrastim yesterday (8) Plaque psoriasis: Code(s): L40.0 - Psoriasis vulgaris Status: Acute Assessment and Plan: Otezla currently on hold. Subjective Date/time seen: 03/18/20 16:24 Interval history: Mary Swann II is a 44-year-old male with plaque psoriasis on Otezla who presented to the emergency department earlier this morning via private vehicle from home for evaluation of shortness of breath. Pt found to have a spontaneous pneumothorax. Pt has history of HIV, neutropenia and SIRS. Pt had chest tube changed out due to air leak Pts Wcc are back up now pt feels better, some mild chest discomfort cxr reviewed, surgery want to switch to water seal tomorrow. Review of Systems Review of Systems: All systems reviewed & are unremarkable except as noted in HPI and below Respiratory: Comments: chest discomfort Exam Narrative: Exam Narrative: General: Chronically ill-appearing male Chest: Respirations are nonlabored. Chest tube in situ. Dressing is clean, dry, and intact Cardiovascular: Regular rate and rhythm with S1-S2. Gastrointestinal: Abdomen is soft Neurological: Alert and oriented. No gross focal deficits to casual conversation. Psychiatric: Pleasant and cooperative. Objective Data Vital Signs Vital Signs: Vital Signs - 24 hr 03/17/20 22:00 03/18/20 06:00 Temperature 37.2 C 37.7 C H Pulse Rate 99 96 Respiratory Rate 20 20 Blood Pressure 101/56 L 96/60 L Pulse Oximetry 98 94 Intake/Output Intake/Output: Intake & Output 03/15/20 03/16/20 03/17/20 03/18/20 23:59 23:59 23:59 23:59 Intake Total 6052 389 3659 490 Output Total 867 9540 923 963 Balance 005 -8845 931 -945 Meds/Results
[2020-03-18 22:00] VITALS: BP 92/50; PULSE 83; RESP 16; TEMP 36.7; O2SAT 93
[2020-03-19 06:00] VITALS: BP 121/46; PULSE 93; RESP 16; TEMP 37.7; O2SAT 95
[2020-03-19] MEDS: MORPHINE SULFATE 4 MG/ML INJ IV PUSH ×2 (07:19→12:39)
[2020-03-19 08:04] VITALS: TEMP 37.7
[2020-03-19] MEDS: ACETAMINOPHEN 325 MG TABLET 650 MG PO ×2 (08:04→19:52)
[2020-03-19] MEDS: BENZONATATE 100 MG CAPSULE 200 MG PO ×3 (08:04→17:13)
[2020-03-19 09:04] VITALS: TEMP 36.4
--- NOTE | 2020-03-19 13:20 | P.PNGS_ITS ---
Progress Note: A&P Assessment and Plan (1) Spontaneous tension pneumothorax: Code(s): J93.0 - Spontaneous tension pneumothorax Status: Acute Assessment and Plan: * Patient has persistent air leak * I reviewed the CXR this AM and larger pneumothorax was noted when on water seal * I have discussed with Hospitalist and recommend transfer to facility with Thoracic surgeon. Patient requests [place] if possible. (2) HIV (human immunodeficiency virus infection): Code(s): B20 - Human immunodeficiency virus [HIV] disease Status: Acute Subjective Subjective Date/Time Seen: 03/19/20 13:20 No shortness of breath. Pain controlled. Exam Resp: Effort & Inspection: normal respiratory effort Auscultation: clear to auscultation bilaterally Other: Chest tube placed to water seal and patient still has persistent air leak Objective Data Vital Signs Vital Signs: Vital Signs - 24 hr 03/18/20 14:00 03/18/20 22:00 03/19/20 06:00 Temperature 36.6 C 36.7 C 37.7 C H Pulse Rate 73 83 93 Respiratory Rate 18 16 16 Blood Pressure 96/61 L 92/50 L 121/46 L Pulse Oximetry 97 93 95 03/19/20 08:04 03/19/20 09:04 Temperature 37.7 C H 36.4 C Pulse Rate Respiratory Rate Blood Pressure Pulse Oximetry Intake/Output Intake/Output: Intake & Output 03/16/20 03/17/20 03/18/20 03/19/20 23:59 23:59 23:59 23:59 Intake Total 315 1020 730 570 Output Total [phone] 700 [facility] -[phone] Meds/Results Medications: Active Medications Generic Name Dose Route Start Last Admin Trade Name Freq PRN Reason Stop Dose Admin Acetaminophen 650 mg 03/12/20 10:28 03/19/20 08:04 Tylenol Tablet PO 650 mg Q4H PRN Administration Mild Pain (1-3) or Fever Hydrocodone Bitart/Acetaminophen 1 tab 03/18/20 08:44 03/19/20 06:15 Flasher 5-325 Mg PO 1 tab Q6H PRN Administration Pain Rated 4-6 Benzonatate 200 mg 03/16/20 09:20 03/19/20 12:40 Tessalon Perles PO 200 mg TID MARY JANE Administration Morphine Sulfate 4 mg 03/12/20 10:28 03/19/20 12:39 Morphine Sulfate Inj IV PUSH 4 mg Q2H PRN Administration Pain Rated 7-10 Ondansetron HCl 4 mg 03/12/20 10:28 Zofran Inj IV PUSH Q4H PRN Nausea Ondansetron HCl 4 mg 03/16/20 13:06 Zofran Inj IV PUSH ONCE PRN Nausea Radiology Results: ITS Impressions Abdomen Ultrasound 03/14/20 15:49 IMPRESSION: 1. Normal spleen size. 2. Cholelithiasis. Chest X-Ray 03/19/20 09:06 IMPRESSION: 1. Increase in size of a small right pneumothorax with unchanged right chest tube. 2. Small left pleural effusion with atelectasis and/or pneumonia in the left lower lung zone. Quality VTE Prophylaxis VTE prophylaxis: mechanical ordered
[2020-03-19 14:00] VITALS: BP 92/54; PULSE 77; RESP 18; TEMP 36.1; O2SAT 98
--- NOTE | 2020-03-19 14:47 | P.PNIM_ITS ---
Progress Note: A&P Assessment and Plan (1) Spontaneous tension pneumothorax: Code(s): J93.0 - Spontaneous tension pneumothorax Status: Acute Assessment and Plan: * Status post right-sided chest tube insertion on 03/12/2020. * Dr. Rich consulted for tube management. * Possible chest tube to water seal no help pneumothorax is larger * Surgery requesting transfer. (2) Systemic inflammatory response syndrome: Code(s): R65.10 - Systemic inflammatory response syndrome (SIRS) of non-infectious origin without acute organ dysfunction Status: Resolved Assessment and Plan: * SIRS criteria met on arrival with neutropenia, tachycardia and tachypnea resolved. * Wcc are NL (3) Acute respiratory failure with hypoxia: Code(s): J96.01 - Acute respiratory failure with hypoxia Status: Inactive Assessment and Plan: * Secondary to spontaneous tension pneumothorax. * Chest tube changed out because of air leak pneumothorax is larger * ongoing air leak (4) HIV antibody positive: Code(s): Z21 - Asymptomatic human immunodeficiency virus [HIV] infection status Status: Inactive Assessment and Plan: * pt is hiv positive (5) Elevated troponin: Code(s): R79.89 - Other specified abnormal findings of blood chemistry Status: Acute Assessment and Plan: * Secondary to tachycardia and hypoxia related to spontaneous tension pneumothorax. * Troponins are flat and are not indicative of acute coronary syndrome. (6) Dehydration: Code(s): E86.0 - Dehydration Status: Resolved Assessment and Plan: * Due to poor oral intake adviced to eat more (7) Neutropenia: Code(s): D70.9 - Neutropenia, unspecified Status: Resolved Assessment and Plan: * Pt has hiv * Covid negative * Wcc is 4 can stopped neupogen * Pt is not on any IV abx as BC is negative (8) Plaque psoriasis: Code(s): L40.0 - Psoriasis vulgaris Status: Acute Assessment and Plan: * Otezla currently on hold. Subjective Date/time seen: 03/19/20 14:47 Interval history: Mary Swann II is a 44-year-old male with plaque psoriasis on Otezla who presented to the emergency department earlier this morning via private vehicle from home for evaluation of shortness of breath. Surgery requesting transfer to thoracic surgery in [place] Awaiting medical bed Review of Systems Respiratory: Respiratory: Reports dyspnea on exertion Exam Narrative: Exam Narrative: General: Chronically ill-appearing male Chest: Respirations are nonlabored. Chest tube in situ. Dressing is clean, dry, and intact Cardiovascular: Regular rate and rhythm with S1-S2. Gastrointestinal: Abdomen is soft Neurological: Alert and oriented. No gross focal deficits to casual conversation. Psychiatric: Pleasant and cooperative. Objective Data Vital Signs Vital Signs: Vital Signs - 24 hr 03/18/20 22:00 03/19/20 06:00
--- NOTE | 2020-03-19 14:47 | PM.IMPN ---
Progress Note: A&P Assessment and Plan (1) Spontaneous tension pneumothorax: Code(s): J93.0 - Spontaneous tension pneumothorax Status: Acute Assessment and Plan: Status post right-sided chest tube insertion on 03/12/2020. Dr. Rich consulted for tube management. Possible chest tube to water seal no help pneumothorax is larger Surgery requesting transfer. (2) Systemic inflammatory response syndrome: Code(s): R65.10 - Systemic inflammatory response syndrome (SIRS) of non-infectious origin without acute organ dysfunction Status: Resolved Assessment and Plan: SIRS criteria met on arrival with neutropenia, tachycardia and tachypnea resolved. Wcc are NL (3) Acute respiratory failure with hypoxia: Code(s): J96.01 - Acute respiratory failure with hypoxia Status: Inactive Assessment and Plan: Secondary to spontaneous tension pneumothorax. Chest tube changed out because of air leak pneumothorax is larger ongoing air leak (4) HIV antibody positive: Code(s): Z21 - Asymptomatic human immunodeficiency virus [HIV] infection status Status: Inactive Assessment and Plan: pt is hiv positive (5) Elevated troponin: Code(s): R79.89 - Other specified abnormal findings of blood chemistry Status: Acute Assessment and Plan: Secondary to tachycardia and hypoxia related to spontaneous tension pneumothorax. Troponins are flat and are not indicative of acute coronary syndrome. (6) Dehydration: Code(s): E86.0 - Dehydration Status: Resolved Assessment and Plan: Due to poor oral intake adviced to eat more (7) Neutropenia: Code(s): D70.9 - Neutropenia, unspecified Status: Resolved Assessment and Plan: Pt has hiv Covid negative Wcc is 4 can stopped neupogen Pt is not on any IV abx as BC is negative (8) Plaque psoriasis: Code(s): L40.0 - Psoriasis vulgaris Status: Acute Assessment and Plan: Otezla currently on hold. Subjective Date/time seen: 03/19/20 14:47 Interval history: Mary Swann II is a 44-year-old male with plaque psoriasis on Otezla who presented to the emergency department earlier this morning via private vehicle from home for evaluation of shortness of breath. Surgery requesting transfer to thoracic surgery in [place] Awaiting medical bed Review of Systems Respiratory: Respiratory: Reports dyspnea on exertion Exam Narrative: Exam Narrative: General: Chronically ill-appearing male Chest: Respirations are nonlabored. Chest tube in situ. Dressing is clean, dry, and intact Cardiovascular: Regular rate and rhythm with S1-S2. Gastrointestinal: Abdomen is soft Neurological: Alert and oriented. No gross focal deficits to casual conversation. Psychiatric: Pleasant and cooperative. Objective Data Vital Signs Vital Signs: Vital Signs - 24 hr 03/18/20 22:00 03/19/20 06:00 03/19/20 08:04 Temperature 36.7 C 37.7 C H 37.7 C H Pulse Rate 83 93 Respiratory Rate 16 16 Blood Pressure 92/50 L 121/46 L Pulse Oximetry 93 95 03/19/20 09:04 Temperature 36.4 C Pulse Rate Respiratory Rate Blood Pressure Pulse Oximetry Intake/Output Intake/Output: Intake & Output 03/16/20 03/17/20 03/18/20 03/19/20 23:59 23:59 23:59 23:59 Intake Total 470 0630 730 150 Output Total 5803 175 0038 700 [facility] -4444 935 -480 -130 Meds/Results Medications: Active Medications Generic Name Dose Route Start Last
--- NOTE | 2020-03-19 15:32 | P.DS_ITS ---
DS: Admitting Diagnosis Admitting Diagnosis Admitting Diagnosis: Spontaneous tension pneumothorax DS: Discharge Diagnosis Discharge Diagnosis (1) Spontaneous tension pneumothorax: Code(s): J93.0 - Spontaneous tension pneumothorax Status: Acute Assessment and Plan: * Status post right-sided chest tube insertion on 03/12/2020. * Dr. Rich consulted for tube management. * Larger chest tube reinserted on 03/16/2020 * Pt kept to water seal, pt having daily CXRs * Surgery requesting transfer as pneumothorax is getting larger. (2) Systemic inflammatory response syndrome: Code(s): R65.10 - Systemic inflammatory response syndrome (SIRS) of non-infectious origin without acute organ dysfunction Status: Resolved Assessment and Plan: * SIRS criteria met on arrival with neutropenia, tachycardia and tachypnea resolved. * Wcc are NL * Was on iv Abx initally on admission and neupogen for a few days (3) Elevated troponin: Code(s): R79.89 - Other specified abnormal findings of blood chemistry Status: Acute Assessment and Plan: * Secondary to tachycardia and hypoxia related to spontaneous tension pneumothorax. * Troponins are flat and are not indicative of acute coronary syndrome. (4) Dehydration: Code(s): E86.0 - Dehydration Status: Resolved Assessment and Plan: * Due to poor oral intake adviced to eat more, eating better now. (5) Neutropenia: Code(s): D70.9 - Neutropenia, unspecified Status: Resolved Assessment and Plan: * Pt has hiv * Covid negative * Wcc is 4 can stopped neupogen * Pt is not on any IV abx as BC is negative (6) Plaque psoriasis: Code(s): L40.0 - Psoriasis vulgaris Status: Acute Assessment and Plan: * Otezla currently on hold. DS: Summary Time Spent with Patient Time attestation: Total time spent providing and/or coordinating discharge services:40 minutes on day of discharge Exam Narrative: Exam Narrative: General: Chronically ill-appearing male Chest: Respirations are nonlabored. Chest tube in situ to water seal. Dressing is clean, dry, and intact Cardiovascular: Regular rate and rhythm with S1-S2. Gastrointestinal: Abdomen is soft Neurological: Alert and oriented. No gross focal deficits to casual conversation. Psychiatric: Pleasant and cooperative. DS: Data Data Completed and Pending Completed studies during hospitalization: Pending at discharge 03/14/20 12:30 Surgical [PTH] Routine Labs on day of discharge: Labs from last 24 hours 03/14/20 12:47 SUSANNAH Screen Negative Discharge Plan Discharge Attending physician on discharge: Mindi Whelan Consulting providers: Pamela Rich ; Adams Andrews ; Matt Romero ; Rm Downs ; Cadence Quesada ; Cosme Matt ; Alexandro Morton ; Myles Cody ; Parminder Fuchs ; Geraldine Edge ; Jose Ramon Otero Discharging Clinician: Mindi Whelan Anticipated Discharge Date/Time: 03/19/20 15:31 Patient Disposition: Acute Care Hospital
--- NOTE | 2020-03-19 15:32 | PM.DS ---
DS: Admitting Diagnosis Admitting Diagnosis Admitting Diagnosis: Spontaneous tension pneumothorax DS: Discharge Diagnosis Discharge Diagnosis (1) Spontaneous tension pneumothorax: Code(s): J93.0 - Spontaneous tension pneumothorax Status: Acute Assessment and Plan: Status post right-sided chest tube insertion on 03/12/2020. Dr. Rich consulted for tube management. Larger chest tube reinserted on 03/16/2020 Pt kept to water seal, pt having daily CXRs Surgery requesting transfer as pneumothorax is getting larger. (2) Systemic inflammatory response syndrome: Code(s): R65.10 - Systemic inflammatory response syndrome (SIRS) of non-infectious origin without acute organ dysfunction Status: Resolved Assessment and Plan: SIRS criteria met on arrival with neutropenia, tachycardia and tachypnea resolved. Wcc are NL Was on iv Abx initally on admission and neupogen for a few days (3) Elevated troponin: Code(s): R79.89 - Other specified abnormal findings of blood chemistry Status: Acute Assessment and Plan: Secondary to tachycardia and hypoxia related to spontaneous tension pneumothorax. Troponins are flat and are not indicative of acute coronary syndrome. (4) Dehydration: Code(s): E86.0 - Dehydration Status: Resolved Assessment and Plan: Due to poor oral intake adviced to eat more, eating better now. (5) Neutropenia: Code(s): D70.9 - Neutropenia, unspecified Status: Resolved Assessment and Plan: Pt has hiv Covid negative Wcc is 4 can stopped neupogen Pt is not on any IV abx as BC is negative (6) Plaque psoriasis: Code(s): L40.0 - Psoriasis vulgaris Status: Acute Assessment and Plan: Otezla currently on hold. DS: Summary Time Spent with Patient Time attestation: Total time spent providing and/or coordinating discharge services:40 minutes on day of discharge Exam Narrative: Exam Narrative: General: Chronically ill-appearing male Chest: Respirations are nonlabored. Chest tube in situ to water seal. Dressing is clean, dry, and intact Cardiovascular: Regular rate and rhythm with S1-S2. Gastrointestinal: Abdomen is soft Neurological: Alert and oriented. No gross focal deficits to casual conversation. Psychiatric: Pleasant and cooperative. DS: Data Data Completed and Pending Completed studies during hospitalization: Pending at discharge 03/14/20 12:30 Surgical [PTH] Routine Labs on day of discharge: Labs from last 24 hours 03/14/20 12:47 SUSANNAH Screen Negative Discharge Plan Discharge Attending physician on discharge: Mindi Whelan Consulting providers: Pamela Rich ; Adams Andrews ; Matt Romero ; Rm Downs ; Cadence Quesada ; Cosme Matt ; Alexandro Morton ; Myles Cody ; Parminder Fuchs ; Geraldine Edge ; Jose Ramon Otero Discharging Clinician: Mindi Whelan Anticipated Discharge Date/Time: 03/19/20 15:31 Patient Disposition: Acute Care Hospital Activity: as tolerated Diet: regular Discharge Instructions: DISCHARGE TO [facility] TH[facility] SURGERY DR COLLAZO [facility] DR CHADWICK Patient Instructions: Pain Management (DC), Sepsis (GEN), How To Wash Your Hands (GEN), HIV Infection (GEN), Droplet Precautions (GEN), Complications of Infection (GEN), Chest Tubes (GEN) Follow-up/Referrals: Matt Romero MD [Physician] - UNKNOWN,DOCTOR [Non-Staff] - Discharge Medications: Continued Otezla 30 mg Tablet 25 mg PO BID 30 Days Qty: 60 RF: 0 Date of
[2020-03-19 18:46] VITALS: BP 95/63
[2020-03-19 19:51] VITALS: BP 92/59; PULSE 86; RESP 16; TEMP 36.8; O2SAT 98
--- NOTE | 2020-04-02 17:53 | P.TS_ITS ---
Transfer Discharge Sum: Prov Provider Date of admission: 03/12/20 10:28 Primary care physician: SEASONAL DRIVER PHYSICIAN Admitting clinician: Jose Miguel West MD Consults: 03/12/20 10:30 Consult to Physician Routine Comment: Consulting Provider: Pamela Rich Reason for consultation: Pneumothorax Has provider been notified: Yes 03/13/20 Consult to Physician Routine Comment: called office and notified of consult Consulting Provider: Matt Romero mail caller/MD group to consult: Hematology Reason for consultation: Severe neutropenia Has provider been notified: Yes Consult to Physician Routine Comment: notified per er Consulting Provider: Adams Andrews Reason for consultation: hiv/sepsis Has provider been notified: Yes DS: Admitting Diagnosis Admitting Diagnosis Admitting Diagnosis: Spontaneous tension pneumothorax DS: Discharge Diagnosis Discharge Diagnosis (1) Spontaneous tension pneumothorax: Code(s): J93.0 - Spontaneous tension pneumothorax Status: Acute Assessment and Plan: * Status post right-sided chest tube insertion on 03/12/2020. * Dr. Rich consulted for tube management. * Larger chest tube reinserted on 03/16/2020 * Pt kept to water seal, pt having daily CXRs * Surgery requesting transfer as pneumothorax is getting larger. (2) Systemic inflammatory response syndrome: Code(s): R65.10 - Systemic inflammatory response syndrome (SIRS) of non-infectious origin without acute organ dysfunction Status: Resolved Assessment and Plan: * SIRS criteria met on arrival with neutropenia, tachycardia and tachypnea resolved. * Wcc are NL * Was on iv Abx initally on admission and neupogen for a few days (3) Elevated troponin: Code(s): R79.89 - Other specified abnormal findings of blood chemistry Status: Acute Assessment and Plan: * Secondary to tachycardia and hypoxia related to spontaneous tension p neumothorax. * Troponins are flat and are not indicative of acute coronary syndrome. (4) Dehydration: Code(s): E86.0 - Dehydration Status: Resolved Assessment and Plan: * Due to poor oral intake adviced to eat more, eating better now. (5) Neutropenia: Code(s): D70.9 - Neutropenia, unspecified Status: Resolved Assessment and Plan: * Pt has hiv * Covid negative * Wcc is 4 can stopped neupogen * Pt is not on any IV abx as BC is negative (6) Plaque psoriasis: Code(s): L40.0 - Psoriasis vulgaris Status: Acute Assessment and Plan: * Otezla currently on hold. Transfer Discharge Sum: Med Medications Active and Home Medications: Home Medications Otezla 25 mg PO BID 30 Days #60 tablet 03/19/20 [Rx Confirmed 03/12/20] Transfer Discharge Sum: Hosp Hospital Course Hospital course: Mary Swann II is a 44 year old male Time Spent with Patient Time attestation: Total time spent providing and/or coordinating transfer services: Exam Narrative: Exam Narrative: General: Chronically i
--- NOTE | 2020-04-02 17:53 | PM.TDS ---
Transfer Discharge Sum: Prov Provider Date of admission: 03/12/20 10:28 Primary care physician: DEPUTY COURT CLERK PHYSICIAN Admitting clinician: Jose Miguel West MD Consults: 03/12/20 10:30 Consult to Physician Routine Comment: Consulting Provider: Pamela Rich Reason for consultation: Pneumothorax Has provider been notified: Yes 03/13/20 Consult to Physician Routine Comment: called office and notified of consult Consulting Provider: Matt Romero rn call center/MD group to consult: Hematology Reason for consultation: Severe neutropenia Has provider been notified: Yes Consult to Physician Routine Comment: notified per er Consulting Provider: Adams Andrews Reason for consultation: hiv/sepsis Has provider been notified: Yes DS: Admitting Diagnosis Admitting Diagnosis Admitting Diagnosis: Spontaneous tension pneumothorax DS: Discharge Diagnosis Discharge Diagnosis (1) Spontaneous tension pneumothorax: Code(s): J93.0 - Spontaneous tension pneumothorax Status: Acute Assessment and Plan: Status post right-sided chest tube insertion on 03/12/2020. Dr. Rich consulted for tube management. Larger chest tube reinserted on 03/16/2020 Pt kept to water seal, pt having daily CXRs Surgery requesting transfer as pneumothorax is getting larger. (2) Systemic inflammatory response syndrome: Code(s): R65.10 - Systemic inflammatory response syndrome (SIRS) of non-infectious origin without acute organ dysfunction Status: Resolved Assessment and Plan: SIRS criteria met on arrival with neutropenia, tachycardia and tachypnea resolved. Wcc are NL Was on iv Abx initally on admission and neupogen for a few days (3) Elevated troponin: Code(s): R79.89 - Other specified abnormal findings of blood chemistry Status: Acute Assessment and Plan: Secondary to tachycardia and hypoxia related to spontaneous tension pneumothorax. Troponins are flat and are not indicative of acute coronary syndrome. (4) Dehydration: Code(s): E86.0 - Dehydration Status: Resolved Assessment and Plan: Due to poor oral intake adviced to eat more, eating better now. (5) Neutropenia: Code(s): D70.9 - Neutropenia, unspecified Status: Resolved Assessment and Plan: Pt has hiv Covid negative Wcc is 4 can stopped neupogen Pt is not on any IV abx as BC is negative (6) Plaque psoriasis: Code(s): L40.0 - Psoriasis vulgaris Status: Acute Assessment and Plan: Otezla currently on hold. Transfer Discharge Sum: Med Medications Active and Home Medications: Home Medications Otezla 25 mg PO BID 30 Days #60 tablet 03/19/20 [Rx Confirmed 03/12/20] Transfer Discharge Sum: Hosp Hospital Course Hospital course: Mary Swann II is a 44 year old male Time Spent with Patient Time attestation: Total time spent providing and/or coordinating transfer services: Exam Narrative: Exam Narrative: General: Chronically ill-appearing male Chest: Respirations are nonlabored. Chest tube in situ to water seal. Dressing is clean, dry, and intact Cardiovascular: Regular rate and rhythm with S1-S2. Gastrointestinal: Abdomen is soft Neurological: Alert and oriented. No gross focal deficits to casual conversation. Psychiatric: Pleasant and cooperative. DS: Data Data Completed and Pending Completed studies during hospitalization: Pending at discharge 03/14/20 12:30 Surgical [PTH] Routine
--- NOTE | 2020-04-19 11:12 | PN_ITS ---
This report was recreated on May 02, 2020. Original report was signed by Dr. Adams Andrews on April 19, 2020 at 1112. Subjective Date/Time: 04/19/20 11:10 I did not perform a consultation on this patient, since I was never notified of a formal consult request. At the request of the ER physician, i did provide phone advice on the proper testing sequence for diagnosing infection. Objective Data Meds/Results Radiology Results: ITS Impressions Abdomen Ultrasound 03/14/20 15:49 IMPRESSION: 1. Normal spleen size. 2. Cholelithiasis. Chest X-Ray 03/19/20 09:06 IMPRESSION: 1. Increase in size of a small right pneumothorax with unchanged right chest tube. 2. Small left pleural effusion with atelectasis and/or pneumonia in the left lower lung zone. Quality VTE Prophylaxis VTE prophylaxis: mechanical ordered Report Initialized date/time: Adams Andrews MD 04/19/20 / 1112 Electronically signed by: Adams Andrews MD 04/19/20 1112 [facility]
== END 2020-03-19 20:11 | disposition short-term general hospital (02) | DRG 143 ==
LOC: ANHED 10:50 → ANHICU 15:36 → ANHIMU 03-16 11:30 → ANH3MEDSUR 03-17 04:45 → ANHICU 03-22 14:09 → ANHIMU 03-22 14:09
PROVIDERS: Internal Medicine Hematology & Oncology; Physician Assistant; Surgery; Admitting Provider Hospitalist; Emergency Provider Emergency Medicine; Visit Provider Family Medicine
PROC: 0W2BX0Z Change Drainage Device in Left Pleural Cavity, External Approach (ICD-10-PCS; CPT 32551; principal; 2020-03-16 13:00)
DX: J93.0 Spontaneous tension pneumothorax (principal); R65.10 Systemic inflammatory response syndrome (SIRS) of non-infectious origin without acute organ dysfunction; J96.01 Acute respiratory failure with hypoxia; Z11.59 Encounter for screening for other viral diseases; B20 Human immunodeficiency virus [HIV] disease; D70.3 Neutropenia due to infection; J93.82 Other air leak; R79.89 Other specified abnormal findings of blood chemistry; E86.0 Dehydration; L40.0 Psoriasis vulgaris; R00.0 Tachycardia, unspecified; Z87.891 Personal history of nicotine dependence
CPT/HCPCS: 32551; 36415; 36600; 71045; 71046; 76700; 80048; 80053; 80307; 81001; 82375; 82607; 82728; 82805; 83036; 83050; 83540; 83550; 83605; 83615; 83735; 83880; 84100; 84443; 84484; 85025; 85610; 85730; 86038; 86140; 86361; 86701; 86702; 86703; 87040; 87389; 87536; 87635; 93005; 93306; 96361; 96365; 96368; 96375; 99291; A9270; C1729; C9803; G0432; J0692; J0696; J1100; J1442; J2250; J2270; J2704; J3010; J3370; J7030; J7120; U0003